=== PATIENT | male | born 1940 | race Caucasian/White ===

== ENCOUNTER 2017-06-20 15:37 | Emergency (ER) | payer MEDICARE ==
[~2017-06-20] VITALS: Ht 152.4 cm; Wt 100.0 kg
[~2017-06-20 15:37] MED LIST: ACYCLOVIR400 MG PO; ADLT ASA LOW81 MG PO; ALPRAZOLAM0.25 MG PO; AMBIEN10 MG PO; ASPIRIN ADULT L81 MG; AUGMENTIN500TAB PO; B-121000 MC1 PO; BACTRIM DS1 TAB PO; BENAZEPRIL10 M1 PO; CILOSTAZOL100 MG PO; CLOTRIM/BETA EX; FENOFIBRATE48 MG PO; FERR SULFATE325 MG PO; FERROUS SULF325 M2 PO; FLEXERIL PO; FLUARIX QUADRIV1 INJ IM; GLIPIZIDE10 MG PO; GLIPIZIDE5 M2 PO; K-DUR/KLOR-CON10 MEQ PO; LANTUS100 MG/ML SC; LASIX 20 MG TAB20 MG PO; LASIX20 MG PO; LISINOPRIL10 MG PO; LISINOPRIL20 M1 PO; LISINOPRIL20 MG PO; LORTAB 7.5 PO; LORTAB 7.57.5 MG PO; METFORMIN1000 MG PO; NEXIUM20 M1 PO; NOVOLIN 70/30 RELION SC; OMEPRAZOLE20.6 MGDR PO; ONDANSETRON4 MG PO; PERCOCET1 TA2 PO; PLETAL100 MG OR; PLETAL100 MG PO; POT CHLORIDE10 ME1 PO; PRAVASTATIN SOD20 MG PO; PRAVASTATIN20 MG PO; RELION SC; TEMAZEPAM15 MG PO; TEMAZEPAM30 MG PO; TRUETEST STRIPS XX; VITAMIN B-12500 MCG PO; ZOLPIDEM10 MG PO; ZPAK PO; [UNRECOGNIZED DRUG - OTHER] SC
[2017-06-20] MEDS ORDERED: NORCO1 TA1 PO (17:12)
[2017-06-20 17:21] VITALS: BP 144/56
== END 2017-06-20 17:34 | disposition home or self-care (01) ==
LOC: ED 15:37
DX: S82.842A Displaced bimalleolar fracture of left lower leg, initial encounter for closed fracture (principal); I25.10 Atherosclerotic heart disease of native coronary artery without angina pectoris; E11.9 Type 2 diabetes mellitus without complications; E78.5 Hyperlipidemia, unspecified; I50.9 Heart failure, unspecified; I11.0 Hypertensive heart disease with heart failure; M19.90 Unspecified osteoarthritis, unspecified site; Z95.820 Peripheral vascular angioplasty status with implants and grafts; W01.0XXA Fall on same level from slipping, tripping and stumbling without subsequent striking against object, initial encounter; Y93.89 Activity, other specified; Y92.009 Unspecified place in unspecified non-institutional (private) residence as the place of occurrence of the external cause

== ENCOUNTER 2017-07-01 15:22 | Inpatient (IN) | payer MEDICARE ==
[~2017-07-01] VITALS: Ht 177.8 cm; Wt 101.9 kg
[~2017-07-01 15:22] MED LIST changes: +NORCO1 TA1 PO
[2017-07-01 15:54] VITALS: BP 105/48
[2017-07-01 16:22] LABS: HEMATOCRIT 32.3 % (39.0-50.0); HEMOGLOBIN 10.4 g/dl (14.0-18.0); IMMATURE GRANULOCYTES 0.5 % (0.0-1.0); MEAN CELL VOLUME 94.7 fL CALC (80.0-100.0); MEAN CORPUSCULAR HGB 30.5 pG CALC (26.0-32.0); MEAN CORPUSCULAR HGB CONC 32.2 g/L CALC (32.0-36.0); NEUT# 6.51 thou/uL (1.82-7.42); RED BLOOD COUNT 3.41 mill/uL (4.70-6.10); RED CELL DISTRI WIDTH 14.2 % (11.5-15.5)
[2017-07-01 16:25] LABS: ALBUMIN 3.6 g/dL (3.2-5.0)
[2017-07-01 17:49] LABS: URINE BILIRUBIN - DIPSTICK NEGATIVE (NEGATIVE); URINE BLOOD DIPSTICK LARGE (NEGATIVE); URINE COLOR YELLOW; URINE GLUCOSE - DIPSTICK NEGATIVE (NEGATIVE); URINE KETONE NEGATIVE (NEGATIVE); URINE LEUK ESTERASE NEGATIVE (NEGATIVE); URINE NITRITE - DIPSTICK NEGATIVE (Negative); URINE PROTEIN - DIPSTICK NEGATIVE (NEG-TRACE); URINE UROBILINOGEN - DIPSTICK 0.2 E.U./dL (0.2)
[2017-07-01 17:52] LABS: URINE CLARITY HAZY
[2017-07-01 17:59] LABS: URINE AMORPH SEDIMENT FEW hpf (NONE-FER); URINE RBC 0-2 RBC/hpf (0-5); URINE WBC 0-2 WBC/hpf (0-5)
[2017-07-01 18:11] LABS: BILIRUBIN, TOTAL 0.8 mg/dL (0.0-1.4); CALCIUM 9.2 mg/dL (8.4-10.2); CREATININE 3.3 mg/dL (0.7-1.3); POTASSIUM 5.7 mmol/l (3.5-5.1); TOTAL PROTEIN 6.2 g/dL (6.3-8.2)
[2017-07-01 19:20] VITALS: BP 113/55
[2017-07-01 22:45] VITALS: BP 104/59
[2017-07-02 03:29] VITALS: BP 120/58
[2017-07-02 05:52] LABS: HEMATOCRIT 32.9 % (39.0-50.0); HEMOGLOBIN 10.7 g/dl (14.0-18.0); IMMATURE GRANULOCYTES 0.4 % (0.0-1.0); MEAN CELL VOLUME 93.5 fL CALC (80.0-100.0); MEAN CORPUSCULAR HGB 30.4 pG CALC (26.0-32.0); MEAN CORPUSCULAR HGB CONC 32.5 g/L CALC (32.0-36.0); NEUT# 6.61 thou/uL (1.82-7.42); RED BLOOD COUNT 3.52 mill/uL (4.70-6.10); RED CELL DISTRI WIDTH 13.9 % (11.5-15.5)
[2017-07-02 06:06] LABS: ALBUMIN 3.4 g/dL (3.2-5.0); BILIRUBIN, TOTAL 0.7 mg/dL (0.0-1.4); CALCIUM 9.1 mg/dL (8.4-10.2); CREATININE 2.4 mg/dL (0.7-1.3); TOTAL PROTEIN 5.9 g/dL (6.3-8.2)
[2017-07-02 06:11] LABS: POTASSIUM 5.9 mmol/l (3.5-5.1)
[2017-07-02 08:10] VITALS: BP 107/48
[2017-07-02 11:00] VITALS: BP 153/54
[2017-07-02 15:41] VITALS: BP 136/48
[2017-07-02 19:20] VITALS: BP 120/59
[2017-07-03 00:10] VITALS: BP 135/65
[2017-07-03 04:20] VITALS: BP 132/67
[2017-07-03 08:15] VITALS: BP 123/47
[2017-07-03 08:24] LABS: CHOLESTEROL HDL RATIO 3.2 (<4.4 (CALC))
[2017-07-03 11:30] VITALS: BP 146/50
[2017-07-03 15:22] VITALS: BP 101/50
[2017-07-03 19:17] VITALS: BP 144/55
[2017-07-04 00:35] VITALS: BP 150/57
[2017-07-04 05:22] VITALS: BP 142/61
[2017-07-04 07:01] LABS: HEMATOCRIT 33.6 % (39.0-50.0); HEMOGLOBIN 10.9 g/dl (14.0-18.0); IMMATURE GRANULOCYTES 0.3 % (0.0-1.0); MEAN CELL VOLUME 93.3 fL CALC (80.0-100.0); MEAN CORPUSCULAR HGB 30.3 pG CALC (26.0-32.0); MEAN CORPUSCULAR HGB CONC 32.4 g/L CALC (32.0-36.0); NEUT# 5.43 thou/uL (1.82-7.42); RED BLOOD COUNT 3.6 mill/uL (4.70-6.10); RED CELL DISTRI WIDTH 13.6 % (11.5-15.5)
[2017-07-04 07:15] LABS: CALCIUM 9.5 mg/dL (8.4-10.2); CREATININE 1.6 mg/dL (0.7-1.3)
[2017-07-04 07:19] LABS: POTASSIUM 5.6 mmol/l (3.5-5.1)
[2017-07-04 07:30] VITALS: BP 131/55
[2017-07-04 12:00] VITALS: BP 136/52
[2017-07-04 16:31] VITALS: BP 123/63
[2017-07-04 19:00] VITALS: BP 129/52
[2017-07-05] VITALS (7 sets, daily range): BP systolic 119–159; BP diastolic 57–70
[2017-07-05 05:45] LABS: HEMATOCRIT 32.2 % (39.0-50.0); HEMOGLOBIN 10.7 g/dl (14.0-18.0); IMMATURE GRANULOCYTES 0.4 % (0.0-1.0); MEAN CELL VOLUME 92.5 fL CALC (80.0-100.0); MEAN CORPUSCULAR HGB 30.7 pG CALC (26.0-32.0); MEAN CORPUSCULAR HGB CONC 33.2 g/L CALC (32.0-36.0); NEUT# 5.51 thou/uL (1.82-7.42); RED BLOOD COUNT 3.48 mill/uL (4.70-6.10); RED CELL DISTRI WIDTH 13.6 % (11.5-15.5)
[2017-07-05 06:06] LABS: ALBUMIN 3.4 g/dL (3.2-5.0); BILIRUBIN, TOTAL 0.7 mg/dL (0.0-1.4); CALCIUM 9.5 mg/dL (8.4-10.2); CREATININE 1.4 mg/dL (0.7-1.3); TOTAL PROTEIN 5.9 g/dL (6.3-8.2)
[2017-07-06 04:50] VITALS: BP 138/62
[2017-07-06 08:12] VITALS: BP 147/60
[2017-07-06 11:44] VITALS: BP 143/46
== END 2017-07-06 15:10 | DRG 863 ==
LOC: MS2 15:22
PROVIDERS: ADMIT Internal Medicine Geriatric Medicine; ATTEND Internal Medicine Geriatric Medicine
PROC: 0T9B70Z Drainage of Bladder with Drainage Device, Via Natural or Artificial Opening (ICD-10-PCS; principal; 2017-07-01)
DX: T81.4XXA Infection following a procedure, initial encounter (principal); E11.22 Type 2 diabetes mellitus with diabetic chronic kidney disease; I13.0 Hypertensive heart and chronic kidney disease with heart failure and stage 1 through stage 4 chronic kidney disease, or unspecified chronic kidney disease; I50.9 Heart failure, unspecified; E11.69 Type 2 diabetes mellitus with other specified complication; N18.9 Chronic kidney disease, unspecified; E78.5 Hyperlipidemia, unspecified; I25.10 Atherosclerotic heart disease of native coronary artery without angina pectoris; M19.90 Unspecified osteoarthritis, unspecified site; S82.892D Other fracture of left lower leg, subsequent encounter for closed fracture with routine healing; W19.XXXD Unspecified fall, subsequent encounter; Y83.1 Surgical operation with implant of artificial internal device as the cause of abnormal reaction of the patient, or of later complication, without mention of misadventure at the time of the procedure; Z95.1 Presence of aortocoronary bypass graft
CPT/HCPCS: J1335

== ENCOUNTER 2017-12-23 16:09 | Inpatient (IN) | payer MEDICARE ==
[~2017-12-23] VITALS: Ht 177.8 cm; Wt 98.0 kg
--- NOTE | 2017-12-23 16:30 | NUR ---
PT ARRIVED FROM DIRECT ADMIT WITH DR RED. FAMILY IN THE ROOM. WILL GET IV AND VS.
--- NOTE | 2017-12-23 17:00 | NUR ---
IV SITE IS OBTAINED AT 1745 IN RFA WITH # 20 1 ATTEMPT PT TOLERATED WELL. PT HAD CXR AND EKG COMPLETED. BREATH SOUNDS ARE CLEAR, BILATERALLY, HR IS REG, PULSES ARE STRONG X4. ABD IS SOFT WITH ACTIVE BS.DRESSING ON LEFT ANKLE IS CDI. FAMILY INQUIRED ABOUT IT BEING CHANGED. EXPLAINED THAT SOON WE GET AN ORDER FROM DR. RED WE WILL ADDRESS THE CHAMGE. CONTINUE TO OSBERVE AND MONITOR.
[2017-12-23 17:19] VITALS: BP 131/49
[2017-12-23 17:35] LABS: IMMATURE GRANULOCYTES 0.5 % (0.0-1.0); MEAN CELL VOLUME 93.2 fL CALC (80.0-100.0); MEAN CORPUSCULAR HGB 29.6 pG CALC (26.0-32.0); MEAN CORPUSCULAR HGB CONC 31.8 g/L CALC (32.0-36.0); NEUT# 5.88 thou/uL (1.82-7.42); RED BLOOD COUNT 4.39 mill/uL (4.70-6.10); RED CELL DISTRI WIDTH 15.2 % (11.5-15.5)
[2017-12-23 17:46] LABS: HEMATOCRIT 40.9 % (39.0-50.0)
[2017-12-23 18:00] LABS: CREATININE 2.4 mg/dL (0.7-1.3)
[2017-12-23 18:04] LABS: POTASSIUM 6.4 mmol/l (3.5-5.1)
--- NOTE | 2017-12-23 18:24 | NUR ---
SPOKE WITH DR TEOFILO BACA: DRESSING ON R FOOT CAN BE EXPOSED TOMORROW AND WILL GIVE DRESSING CHANGE ORDERS AT THAT TIME,. ALSO PICTURES CAN BE OBTAINED. ALL MEDICATIONS GIVEN AND PT ABLE TO TAKE
--- NOTE | 2017-12-23 19:30 | NUR ---
REPORT RECIEVED; PT RESTING IN BED WATCHING TV. PT DENIES ANY PAIN OR DISCOMFORT. PT ENCOURAGED TO CALL FOR ASSISTANCE. IV PATENT; NO REDNESS OR EDEMA NOTED.SAFETY PRECAUTIONS REINFORCED. CALL LIGHT WITHIN REACH. FREQUENT ROUNDS MADE.
[2017-12-23 19:34] VITALS: BP 139/63
--- NOTE | 2017-12-23 20:10 | NUR ---
PT WOKE FOR ASSESSMENT. RESP EVEN AND UNLABORED; NO DISCOMFORT NOTED. TELE IN PLACE. ABD DISTENDED; SOFT. HYPOACTIVE BOWEL SOUNDS NOTED. LEFT FOOT DRESSING INTACT; CDI. PEDAL PULSES PALPATED BILAT. IV RFA PATENT; NO REDNESS OR EDEMA NOTED. PT ENCOURAGED TO CALL FOR ASSISTANCE. SAFETY PRECAUTIONS REINFORCED.CALL LIGHT WITHIN REACH.
[2017-12-23 20:28] LABS: CREATININE 2.3 mg/dL (0.7-1.3)
[2017-12-23 20:35] LABS: POTASSIUM 6.9 mmol/l (3.5-5.1)
--- NOTE | 2017-12-23 20:38 | NUR ---
RECEIVED RESULTS FROM [employer], AND GAVE THE RESULT TO RADHA BURNETT
[2017-12-23] MEDS ORDERED: NOVOLIN 70/30 RELION SC (20:43)
[2017-12-23] MEDS ORDERED: NOVOLIN R100 UNIT/M SC (20:44)
[2017-12-23] MEDS ORDERED: LIPITOR40 M1 PO (20:46)
[2017-12-23] MEDS ORDERED: CARVEDILOL3.125 MG PO (20:47)
[2017-12-23] MEDS ORDERED: CLOPIDOGREL75 MG PO (20:48)
--- NOTE | 2017-12-23 20:48 | NUR ---
DR RED NOTIFIED OF PT POTASSIUM; 6.9. NEW ORDERS RECIEVED. 0.45 NORMAL SALINE @ 100. KAYEXALATE 30 CC PO X 1 NOW. MAGNESIUM CITRATE 5 OZ PO. CH7 LAB REDRAW IN 4 HRS. TORB.
[2017-12-23] MEDS ORDERED: LISINOPRIL5 MG PO (20:49)
[2017-12-23] MEDS ORDERED: OXYCODONE HCL5 MG PO (20:50)
[2017-12-23] MEDS ORDERED: DIFLUCAN100 M1 PO (20:51)
[2017-12-23] MEDS ORDERED: BACTRIM DS1 TAB PO (20:52)
[2017-12-23 23:00] LABS: URINE BILIRUBIN - DIPSTICK NEGATIVE (NEGATIVE); URINE BLOOD DIPSTICK NEGATIVE (NEGATIVE); URINE COLOR YELLOW; URINE GLUCOSE - DIPSTICK NEGATIVE (NEGATIVE); URINE KETONE NEGATIVE (NEGATIVE); URINE LEUK ESTERASE NEGATIVE (NEGATIVE); URINE NITRITE - DIPSTICK NEGATIVE (Negative); URINE PROTEIN - DIPSTICK NEGATIVE (NEG-TRACE); URINE SPECIFIC GRAVITY 1.015
[2017-12-23 23:02] LABS: URINE CLARITY CLEAR
--- NOTE | 2017-12-23 23:45 | NUR ---
PT HAD ONE SMALL BM, PT STATES IT WASNT A LARGE AMOUNT. PT DENIES PAIN OR DISCOMFORT. CALL LIGHT WITHIN REACH.
--- NOTE | 2017-12-24 00:20 | NUR ---
RESP EVEN AND UNLABORED; NO DISCOMFORT NOTED. TELE IN PLACE. IV PATENT; NO REDNESS OR EDEMA NOTED. CALL LIGHT WITHIN REACH.
[2017-12-24 00:21] VITALS: BP 147/68
[2017-12-24 01:15] LABS: CREATININE 1.9 mg/dL (0.7-1.3)
[2017-12-24 01:16] LABS: POTASSIUM 5.9 mmol/l (3.5-5.1)
--- NOTE | 2017-12-24 04:00 | NUR ---
RESP EVEN AND UNLABORED. IV PATENT; NO REDNESS OR EDEMA NOTED. TELE IN PLACE. CALL LIGHT WITHIN REACH.
[2017-12-24 04:09] VITALS: BP 125/55
[2017-12-24 05:38] LABS: ALBUMIN 3.7 g/dL (3.2-5.0); BILIRUBIN, TOTAL 0.5 mg/dL (0.0-1.4); CREATININE 1.8 mg/dL (0.7-1.3); TOTAL PROTEIN 6.3 g/dL (6.3-8.2)
[2017-12-24 05:40] LABS: HEMATOCRIT 36.8 % (39.0-50.0); IMMATURE GRANULOCYTES 0.3 % (0.0-1.0); MEAN CELL VOLUME 91.5 fL CALC (80.0-100.0); MEAN CORPUSCULAR HGB 29.9 pG CALC (26.0-32.0); MEAN CORPUSCULAR HGB CONC 32.6 g/L CALC (32.0-36.0); NEUT# 5.47 thou/uL (1.82-7.42); RED BLOOD COUNT 4.02 mill/uL (4.70-6.10); RED CELL DISTRI WIDTH 14.9 % (11.5-15.5)
[2017-12-24 05:47] LABS: POTASSIUM 6.3 mmol/l (3.5-5.1)
--- NOTE | 2017-12-24 05:57 | NUR ---
DR RED CALLED WITH POTASSIUM; 6.3. NEW ORDERS RECIEVED AT THIS TIME. KAYEXALATE 30 CC PO X1 NOW. MAGNESIUM CITRATE 10 OZ PO. HOLD NOVOLIN 70/30 FOR BLOOD SUGAR BELOW 130.
--- NOTE | 2017-12-24 07:30 | NUR ---
BEDSIDE REPORT RECEIVED FROM LEX GARCIA. PT SITTING ON SIDE OF BED. ASSISTED TO OWN WC. PT TRANSFERES SELF TO RESTROOM. REPORTS MULTIPLE LOOSE STOOLS DURING NIGHT. FALL PRECAUTIONS REINFORCED. PLAN OF CARE DISCUSSED. REPORTING OF CONCERNS ENCOURAGED. PT DENIES PAIN.
--- NOTE | 2017-12-24 09:00 | NUR ---
DR. RED IN TO SEE PT. WOUND TO L FOOT EXAMINED BY DR. RED. PIC TAKEN FOR CHART, WTD DRESSING APPLIED PER DR. RED.
[2017-12-24 11:10] VITALS: BP 156/64
[2017-12-24 13:24] LABS: HEMATOCRIT 38.1 % (39.0-50.0); HEMOGLOBIN 12.3 g/dl (14.0-18.0); IMMATURE GRANULOCYTES 0.3 % (0.0-1.0); MEAN CELL VOLUME 90.9 fL CALC (80.0-100.0); MEAN CORPUSCULAR HGB 29.4 pG CALC (26.0-32.0); MEAN CORPUSCULAR HGB CONC 32.3 g/L CALC (32.0-36.0); NEUT# 5.46 thou/uL (1.82-7.42); RED BLOOD COUNT 4.19 mill/uL (4.70-6.10); RED CELL DISTRI WIDTH 14.8 % (11.5-15.5)
[2017-12-24 13:37] LABS: CREATININE 1.5 mg/dL (0.7-1.3)
[2017-12-24 13:50] LABS: POTASSIUM 6.5 mmol/l (3.5-5.1)
--- NOTE | 2017-12-24 13:55 | NUR ---
CRITICAL RESULT OF POTASSIUM 6.[address] RED. ORDERS GIVEN AND FAXED TO PHARMACY. PT UPDATED AND STATES UNDERSTANDING.
[2017-12-24 14:33] LABS: ALBUMIN 3.8 g/dL (3.2-5.0); BILIRUBIN, TOTAL 0.6 mg/dL (0.0-1.4); TOTAL PROTEIN 6.5 g/dL (6.3-8.2)
[2017-12-24 15:42] VITALS: BP 104/50
--- NOTE | 2017-12-24 16:38 | NUR ---
PT SITTING ON SIDE OF BED. DENIES COMPLAINTS AT THIS TIME.
[2017-12-24 18:24] LABS: ALBUMIN 3.9 g/dL (3.2-5.0); BILIRUBIN, TOTAL 0.7 mg/dL (0.0-1.4); CREATININE 1.5 mg/dL (0.7-1.3); TOTAL PROTEIN 6.6 g/dL (6.3-8.2)
[2017-12-24 18:30] LABS: POTASSIUM 6.2 mmol/l (3.5-5.1)
[2017-12-24 19:00] VITALS: BP 128/41
--- NOTE | 2017-12-24 19:30 | NUR ---
PT RESTING IN BED WITH EYES CLOSED. AROUSES EASILY TO VERBAL STIMULI. PT IS ALERT AND ORIENTED X3. PERRLA. RESP ARE EVEN AND UNLABORED. NO DISTRESS NOTED, LUNGS ARE CLEAR. HR REGULAR. PULSES PALPABLE THROUGHOUT. NO EDEMA NOTED. BS ACTIVE. PT HAVING FREQUENT BMS ON KAYEXELATE. #20 1/2 NS @100CC/HR. NO REDNESS OR EDEMA NOTED. CALL LIGHT IN REACH. WILL CONTINUE TO MONITOR
[2017-12-24 21:32] LABS: ALBUMIN 3.7 g/dL (3.2-5.0); BILIRUBIN, TOTAL 0.5 mg/dL (0.0-1.4); CREATININE 1.5 mg/dL (0.7-1.3); POTASSIUM 5.6 mmol/l (3.5-5.1); TOTAL PROTEIN 6.5 g/dL (6.3-8.2)
--- NOTE | 2017-12-24 21:40 | NUR ---
DR RED NOTIFEID OF POTASSIUM 5.6.
--- NOTE | 2017-12-25 | NUR ---
PT RESTING IN BED WITH EYES CLOSED. RESP ARE EVEN AND UNLABORED. NO DISTRESS NOTED. WILL CONTINUE TO MONITOR
[2017-12-25 00:21] VITALS: BP 116/56
--- NOTE | 2017-12-25 04:05 | NUR ---
PT RESTING IN BED WITH EYES CLOSED. RES ARE EVEN AND UNLABORED. NO DISTRESS NOTED, WILL CONTIUE TO MONITOR
[2017-12-25 04:31] VITALS: BP 127/52
[2017-12-25 06:42] LABS: HEMATOCRIT 39.1 % (39.0-50.0); HEMOGLOBIN 12.5 g/dl (14.0-18.0); MEAN CELL VOLUME 90.7 fL CALC (80.0-100.0); RED BLOOD COUNT 4.31 mill/uL (4.70-6.10); RED CELL DISTRI WIDTH 14.7 % (11.5-15.5)
--- NOTE | 2017-12-25 06:49 | NUR ---
REPORT RECEIVED FROM MATTHEW ALBERTS. PT SLEEPING AT THIS TIME. CALL LIGHT WITHIN REACH.
[2017-12-25 06:51] LABS: ALBUMIN 3.8 g/dL (3.2-5.0); BILIRUBIN, TOTAL 0.6 mg/dL (0.0-1.4); CREATININE 1.4 mg/dL (0.7-1.3); POTASSIUM 5.4 mmol/l (3.5-5.1); TOTAL PROTEIN 6.7 g/dL (6.3-8.2)
[2017-12-25 07:58] VITALS: BP 132/60
[2017-12-25 08:21] VITALS: BP 132/60
--- NOTE | 2017-12-25 08:29 | NUR ---
PT SITTING ON SIDE OF BED. DENIES PAIN. REPORTING OF CONCERNS ENCOURAGED. PT STATES ANTICIPATION FO DISCHARGE. DISCHARGE PROCESS REVIEWED. PT STATES UNDERSTANDING.
--- NOTE | 2017-12-25 09:34 | NUR ---
DR. RED IN TO SEE PT. PLAN OF CARE UPDATED.
--- NOTE | 2017-12-25 10:30 | NUR ---
Discharge instructions given. Patient verbalizes understanding of same. Discharged in stable condition via Wheelchair to Home with family. All belongings sent with pt.
== END 2017-12-25 10:30 | disposition home or self-care (01) | DRG 641 ==
LOC: MS2 16:09
PROVIDERS: ADMIT Internal Medicine Geriatric Medicine; ATTEND Internal Medicine Geriatric Medicine
DX: E87.5 Hyperkalemia (principal); N17.9 Acute kidney failure, unspecified; E11.22 Type 2 diabetes mellitus with diabetic chronic kidney disease; E11.69 Type 2 diabetes mellitus with other specified complication; I13.0 Hypertensive heart and chronic kidney disease with heart failure and stage 1 through stage 4 chronic kidney disease, or unspecified chronic kidney disease; I50.9 Heart failure, unspecified; N18.9 Chronic kidney disease, unspecified; I25.10 Atherosclerotic heart disease of native coronary artery without angina pectoris; E78.5 Hyperlipidemia, unspecified; T81.4XXD Infection following a procedure, subsequent encounter; Y83.1 Surgical operation with implant of artificial internal device as the cause of abnormal reaction of the patient, or of later complication, without mention of misadventure at the time of the procedure; Z95.1 Presence of aortocoronary bypass graft

== ENCOUNTER 2018-01-08 18:14 | Emergency (ER) | payer MEDICARE ==
[~2018-01-08] VITALS: Ht 177.8 cm; Wt 98.2 kg
[~2018-01-08 18:14] MED LIST changes: +CARVEDILOL3.125 MG PO; +CLOPIDOGREL75 MG PO; +DIFLUCAN100 M1 PO; +LIPITOR40 M1 PO; +LISINOPRIL5 MG PO; +NOVOLIN R100 UNIT/M SC; +OXYCODONE HCL5 MG PO
[2018-01-08 19:23] VITALS: BP 172/66
== END 2018-01-08 19:38 | disposition home or self-care (01) ==
LOC: ED 18:14
PROC: 0HQLXZZ Repair Left Lower Leg Skin, External Approach (ICD-10-PCS; principal; 2018-01-08)
DX: S81.012A Laceration without foreign body, left knee, initial encounter (principal); W22.8XXA Striking against or struck by other objects, initial encounter; Y92.009 Unspecified place in unspecified non-institutional (private) residence as the place of occurrence of the external cause

== ENCOUNTER 2018-03-31 08:15 | Inpatient (IN) | payer MEDICARE ==
[~2018-03-31] VITALS: Ht 177.8 cm; Wt 100.4 kg
[~2018-03-31 08:15] MED LIST changes: +OMEPRAZOLE10 MG PO; -OMEPRAZOLE20.6 MGDR PO
[2018-03-31] MEDS ORDERED: NOVOLIN 70/30 SC ×2 (08:40)
[2018-03-31] MEDS ORDERED: LISINOPRIL10 MG PO (08:43)
[2018-03-31] MEDS ORDERED: FUROSEMIDE20 MG PO (08:46)
[2018-03-31] MEDS ORDERED: OXYCOD-APAP1 TA1 PO (08:48)
[2018-03-31 08:55] LABS: HEMATOCRIT 39.9 % (39.0-50.0); HEMOGLOBIN 12.9 g/dl (14.0-18.0); IMMATURE GRANULOCYTES 0.4 % (0.0-1.0); MEAN CELL VOLUME 94.5 fL CALC (80.0-100.0); MEAN CORPUSCULAR HGB 30.6 pG CALC (26.0-32.0); MEAN CORPUSCULAR HGB CONC 32.3 g/L CALC (32.0-36.0); NEUT# 7.84 thou/uL (1.82-7.42); RED BLOOD COUNT 4.22 mill/uL (4.70-6.10); RED CELL DISTRI WIDTH 14.4 % (11.5-15.5)
[2018-03-31 09:07] LABS: ALBUMIN 4.2 g/dL (3.2-5.0); ALKALINE PHOSPHATASE 95 u/l (38-126); BILIRUBIN, TOTAL 1.2 mg/dL (0.0-1.4); BUN 31 mg/dL (8-23); BUN/CREATININE RATIO 26 (12-20 (CALC)); CARBON DIOXIDE 23 mmol/l (22-30); CHLORIDE 108 mmol/l (95-108); CREATININE 1.2 mg/dL (0.7-1.3); GFR 59 ML/MIN (>=60 (CALC)); GFR FOR AFR.AMER. > 60 ML/MIN (>=60 (CALC)); SGPT/ALT 28 u/l (11-66); SODIUM 143 mmol/l (137-146); TOTAL PROTEIN 7.6 g/dL (6.3-8.2)
[2018-03-31 09:14] LABS: ANION GAP 17 (6-22 (CALC)); POTASSIUM 5.4 mmol/l (3.5-5.1); SGOT/AST 39 u/l (19-48)
[2018-03-31 09:16] LABS: MYOGLOBIN 51 ng/mL (0 - 121)
[2018-03-31 09:24] LABS: URINE BILIRUBIN - DIPSTICK NEGATIVE (NEGATIVE); URINE BLOOD DIPSTICK NEGATIVE (NEGATIVE); URINE COLOR YELLOW; URINE GLUCOSE - DIPSTICK NEGATIVE (NEGATIVE); URINE KETONE NEGATIVE (NEGATIVE); URINE LEUK ESTERASE NEGATIVE (NEGATIVE); URINE NITRITE - DIPSTICK NEGATIVE (Negative); URINE PROTEIN - DIPSTICK NEGATIVE (NEG-TRACE); URINE UROBILINOGEN - DIPSTICK 0.2 E.U./dL (0.2)
[2018-03-31 09:25] LABS: URINE CLARITY CLEAR
[2018-03-31 11:41] VITALS: BP 133/59
[2018-03-31 15:01] VITALS: BP 175/68
[2018-03-31 17:55] VITALS: BP 148/64
[2018-03-31 19:00] VITALS: BP 137/61
[2018-04-01 00:03] VITALS: BP 126/58
[2018-04-01 04:06] VITALS: BP 133/59
[2018-04-01 06:51] LABS: HEMATOCRIT 39.5 % (39.0-50.0); HEMOGLOBIN 13.2 g/dl (14.0-18.0); IMMATURE GRANULOCYTES 0.4 % (0.0-1.0); MEAN CELL VOLUME 92.3 fL CALC (80.0-100.0); MEAN CORPUSCULAR HGB 30.8 pG CALC (26.0-32.0); MEAN CORPUSCULAR HGB CONC 33.4 g/L CALC (32.0-36.0); NEUT# 6.26 thou/uL (1.82-7.42); RED BLOOD COUNT 4.28 mill/uL (4.70-6.10)
[2018-04-01 07:03] LABS: ALKALINE PHOSPHATASE 103 u/l (38-126); ANION GAP 15 (6-22 (CALC)); BILIRUBIN, TOTAL 1.2 mg/dL (0.0-1.4); BUN 32 mg/dL (8-23); BUN/CREATININE RATIO 26 (12-20 (CALC)); CALCULATED LDLCHOLESTEROL 51 mg/dL (62-129 (CALC)); CARBON DIOXIDE 28 mmol/l (22-30); CHLORIDE 102 mmol/l (95-108); CHOLESTEROL HDL RATIO 3.1 (<4.4 (CALC)); CREATININE 1.2 mg/dL (0.7-1.3); GFR 59 ML/MIN (>=60 (CALC)); GFR FOR AFR.AMER. > 60 ML/MIN (>=60 (CALC)); HDL CHOLESTEROL 38 mg/dL (>=40); POTASSIUM 4.4 mmol/l (3.5-5.1); SGOT/AST 15 u/l (19-48); SGPT/ALT 28 u/l (11-66); SODIUM 141 mmol/l (137-146); TOTAL CHOLESTEROL 119 mg/dl (0-199); TOTAL PROTEIN 6.9 g/dL (6.3-8.2); TOTAL TRIGLYCERIDES 149 mg/dl (30-149); VLDL CHOLESTROL 30 mg/dl (0-38 (CALC))
[2018-04-01 08:36] VITALS: BP 145/53
[2018-04-01 12:32] VITALS: BP 115/43
[2018-04-01 15:42] VITALS: BP 117/62
== END 2018-04-01 17:47 | disposition home or self-care (01) | DRG 292 ==
LOC: ED 08:15 → ED-I 10:20 → ED 10:30 → MS2 10:31
PROVIDERS: Emergency Medicine; ADMIT Internal Medicine Geriatric Medicine; ATTEND Internal Medicine Geriatric Medicine
DX: I13.0 Hypertensive heart and chronic kidney disease with heart failure and stage 1 through stage 4 chronic kidney disease, or unspecified chronic kidney disease (principal); N17.9 Acute kidney failure, unspecified; F11.20 Opioid dependence, uncomplicated; I50.9 Heart failure, unspecified; E11.22 Type 2 diabetes mellitus with diabetic chronic kidney disease; N18.9 Chronic kidney disease, unspecified; I25.10 Atherosclerotic heart disease of native coronary artery without angina pectoris; E78.5 Hyperlipidemia, unspecified; K21.9 Gastro-esophageal reflux disease without esophagitis; E87.5 Hyperkalemia; I73.9 Peripheral vascular disease, unspecified; G89.29 Other chronic pain; M54.5 Low back pain; M19.90 Unspecified osteoarthritis, unspecified site; Z95.1 Presence of aortocoronary bypass graft; Z95.2 Presence of prosthetic heart valve; Z95.5 Presence of coronary angioplasty implant and graft; Z79.4 Long term (current) use of insulin

== ENCOUNTER 2018-11-22 09:58 | Inpatient (IN) | payer MEDICARE ==
[~2018-11-22] VITALS: Ht 274.3 cm; Wt 104.9 kg
[~2018-11-22 09:58] MED LIST changes: +FUROSEMIDE20 MG PO; +NOVOLIN 70/30 SC; +OXYCOD-APAP1 TA1 PO
--- NOTE | 2018-11-22 10:16 | NUR ---
[facility]
[2018-11-22 11:17] LABS: HEMATOCRIT 37.2 % (39.0-50.0); HEMOGLOBIN 11.9 g/dl (14.0-18.0); IMMATURE GRANULOCYTES 0.4 % (0.0-5.0); MEAN CELL VOLUME 93.9 fL CALC (80.0-100.0); MEAN CORPUSCULAR HGB 30.1 pG CALC (26.0-32.0); NEUT# 11.48 thou/uL (1.82-7.42); RED BLOOD COUNT 3.96 mill/uL (4.70-6.10); RED CELL DISTRI WIDTH 14.4 % (11.5-15.5)
[2018-11-22 11:38] LABS: ALBUMIN 3.8 g/dL (3.2-5.0); BILIRUBIN, TOTAL 2.2 mg/dL (0.0-1.4); CREATININE 1.9 mg/dL (0.7-1.3); TOTAL PROTEIN 6.5 g/dL (6.3-8.2)
[2018-11-22 11:47] LABS: POTASSIUM 5.6 mmol/l (3.5-5.1)
--- NOTE | 2018-11-22 12:04 | NUR ---
PT ADVISED OF CONTINUED WAIT TIME. ASSISTED W/REPOSITIONING. IV SITE HEALTHY. IV ABT AND FLUIDS INFUSING. CALL LIGHT WITHIN REACH.
--- NOTE | 2018-11-22 12:40 | NUR ---
PT PLACED ON O2 2L/M VIA NC DUE TO SATS AT 89 RA WHILE ASLEEP.
--- NOTE | 2018-11-22 13:15 | NUR ---
ADVISED REPORT COULD NOT BE TAKEN AT THIS TIME ON [employer].
--- NOTE | 2018-11-22 14:39 | NUR ---
ATTEMPT TO CALL REPORT. NURSE UNAVAILABLE.
--- NOTE | 2018-11-22 15:01 | NUR ---
REPORT CALLED TO FRED PT TO [facility] ON TELEMETRY. IV SITE HEALTHY, VSS
--- NOTE | 2018-11-22 15:09 | NUR ---
PT ARRIVED TO FLOOR VIA STRETCHER IN STABLE CONDITION ACCOMPANIED BY MATTHEW WHITEHEAD;PT AMBULATED WITH A WEAK GAIT AND ASSISTED DEVICE TO BEDSIDE;WT AND VS OBTAINED BY WRITTER,CURRENT TEMP 100.0;BLANKETS REMOVED,AC LOWERED AND PRN TYLENOL 650MG PO TO BE ADMINISTERED;PT REPORTS "COLD" SINCE 11/19/18;PT DENIES ANY CURRENT PAIN,PAIN SCALE AND REPORTING EDUCATED;ASSESSMENT COMPLETED;RESPIRATIONS EVEN AND UNLABORED ON HUM O2 @ 2L VIA NC, EXERTIONAL SOB NOTED AT TIMES;PT REPORTS PRODUCTIVE COUGH BROWN/SMALL AND THICK, NO SPUTUM VISUALIZED BY WRITTER AT THIS TIME;LUNG SOUNDS CLEAR/DIMINISHED;ABDOMEN DISTENDED/SOFT ON PALPATION AND ACTIVE IN ALL 4 QUADRANTS, LAST BM 11/19/18 PT REPORTS THIS IS NORMAL FOR HIM;WEAK PEDAL PULSES;SKIN INTACT;#20G TO RAC FLUSHED AND PATENT, NS TO BE STARTED AT 80ML/HR PER ORDER;TELE MONITORING IN PLACE;PT DENIES ANY ADDITIONAL NEEDS AT THIS TIME;FRESH WATER PROVIDED;ENCOURAGED TO CALL FOR ASSISTANCE IF NEEDED;FALL PRECAUTIONS IN PLACE WITH CALL LIGHT IN REACH;WILL CONTINUE TO MONITOR
[2018-11-22 15:19] VITALS: BP 149/76
--- NOTE | 2018-11-22 16:55 | NUR ---
TEMP RE-CHECK 99.5.
--- NOTE | 2018-11-22 17:30 | NUR ---
AT BEDSIDE DISCUSSING POC.
[2018-11-22 19:29] VITALS: BP 119/55
--- NOTE | 2018-11-22 19:30 | NUR ---
PATIENT SITTING UP ON THE SIDE OF THE BED-AWAKE ALERT AND ORIENTEDX3. TELE MONITOR IN PLACE. IV SITE TO RIGHT AC INTACT WITH IVF PATENT AND INFUSING AT 80CC/HR. SITE IS HEALTHY AT THIS TIME. PATIENT USING THE O2 ON AND OFF. PRODUCTIVE COUGH AT TIMES WITH THICK DARK YELLOW/BEIGE SPUTUM. SAFETY PRECAUTIONS REINFORCED. CALL LIGHT IN REACH. WILL CONT TO MONITOR.
--- NOTE | 2018-11-22 21:00 | NUR ---
PATIENT RESTING IN BED. STATES NO APPETITE AND DIDN'T EAT HIS DINNER. BS-199. DECLINES 70/30 TONIGHT DUE TO LACK OF ORAL INTAKE AND POOR APPETTIE. COVERED WITH NOVALOG ONLY PER PATIENT REQUEST. MEDICATED WITH MOM 30CC FOR CONSTIPATION. NO BM IN SEVERAL DAYS PER PATIENT. REINFORCED. STRICT I&O-VERBALIZES UNDERSTANDING. SAFETY PRECAUTIONS REINFORCED. CALL LIGHT IN REACH. WILL CONT TO MONITOR.
--- NOTE | 2018-11-22 22:52 | NUR ---
PATIENT RESTING IN BED-MEDICATED FOR GENERALIZED BACK AND LEG PAIN WITH PERCOCET 10/325MG PO AND FOR SLEEP WITH RESTORIL 30MG PO. CONT TO HAVE PRODUCTIVE COUGH. SAFETY PRECAUTIONS REINFORCED. CALL LIGHT IN REACH. WILL CONT TO MONITOR.
[2018-11-23 00:31] VITALS: BP 98/52
--- NOTE | 2018-11-23 03:04 | NUR ---
PATIENT RESTING INBED-REPOSITIONING SELF IN BED. CONT WITH PRODUCTIVE COUGH. TELE MONITOR IN PLACE. NO COMPLAINTS AT THIS TIME. CALL LIGHT IN REACH. WILL CONT TO MONITOR.
[2018-11-23 04:20] VITALS: BP 122/61
[2018-11-23 05:36] LABS: HEMOGLOBIN 11.5 g/dl (14.0-18.0); IMMATURE GRANULOCYTES 1.3 % (0.0-5.0); MEAN CELL VOLUME 95.5 fL CALC (80.0-100.0); MEAN CORPUSCULAR HGB 30.5 pG CALC (26.0-32.0); MEAN CORPUSCULAR HGB CONC 31.9 g/L CALC (32.0-36.0); NEUT# 7.47 thou/uL (1.82-7.42); RED BLOOD COUNT 3.77 mill/uL (4.70-6.10); RED CELL DISTRI WIDTH 14.4 % (11.5-15.5)
[2018-11-23 05:40] LABS: ALBUMIN 3.5 g/dL (3.2-5.0); BILIRUBIN, TOTAL 1.1 mg/dL (0.0-1.4); CREATININE 1.7 mg/dL (0.7-1.3); POTASSIUM 5.1 mmol/l (3.5-5.1); TOTAL PROTEIN 6.2 g/dL (6.3-8.2)
--- NOTE | 2018-11-23 07:00 | NUR ---
PT REPORT RECIEVED FROM MATTHEW CARRIZALES. PT WATCHING TELEVISION. NO S/S OF DISTRESS. CALL LIGHT IN REACH. WILL CONTINUE TO MONITOR.
[2018-11-23 07:51] VITALS: BP 128/66
--- NOTE | 2018-11-23 07:51 | NUR ---
PT A/O X3. SPEECH IS CLEAR. PRODUCTIVE COUGH NOTED; PT STATES IT IS THICK, YELLOWISH IN COLOR. RESP EVEN AND UNLABORED. UPPER LOBES CLEAR, LOWER LOBES COARSE. O2 @2L AT THE BEDSIDE. TELE IN PLACE. BOWEL SOUNDS ACTIVE X4. STRONG RADIAL PULSES, WEAK PEDAL PULSES. #20 RAC NS @80. SITE APPEARS HEALTHY. SKIN IS INTACT. NO C/O PAIN OR NEEDS. POC DISCUSSED. SAFETY PRECAUTIONS IN PLACE. CALL LIGHT IN REACH. WILL CONTINUE TO MONITOR.
--- NOTE | 2018-11-23 11:18 | NUR ---
PT LYINGIN BED RESTING. TELE IN PLACE. PT IS COUGHING UP A MODERATE AMOUNT OF THICK BROWN SPUTUM. NO C/O PAIN OR NEEDS. CALL LIGHT IN REACH. WILL CONTINUE TO MONITOR.
[2018-11-23 12:00] VITALS: BP 102/37
--- NOTE | 2018-11-23 14:12 | NUR ---
CPT given bilateral with G5 percussor x 6 minutes.
--- NOTE | 2018-11-23 15:54 | NUR ---
PT WATCHING TELEVISION IN BED. NO C/O PAIN OR NEEDS. TELE IN PLACE. CALL LIGHT IN REACH. WILL CONTINUE TO MONITOR.
[2018-11-23 16:00] VITALS: BP 130/59
[2018-11-23 19:19] VITALS: BP 143/65
--- NOTE | 2018-11-23 19:30 | NUR ---
PATIENT RESTING IN BED AT THIS TIME-APPEARS SLEEPING AT THIS TIME WITH EYES CLOSED. O2 IS OFF AT THIS TIME AND O2 SAT IS MID 90'S. TELE MONITOR IN PLACE. IVF NS PATENT AND INFUSING AT 50CC/HR. SITE APPEARS HEALTHY AT THIS TIME. CALL LIGHT IN REACH. WILL CONT TO MONITOR.
--- NOTE | 2018-11-23 20:30 | NUR ---
PATIENT RESTING IN BED-EASY TO AROUSE. PATIENT MEDICATED WITH HS MEDS INCLUDING PERCOCET FOR BACK AND LEG PAIN AND WITH RESTORIL FOR SLEEP. PATIENT ALSO RECIEVED MOM FOR CONSTIPATION. VOIDED CLEAR REN URINE IN URINAL. SAFETY PRECAUTIONS REINFORCED. CALL LIGHT IN REACH, WILL CONT TO MONITOR.
--- NOTE | 2018-11-23 21:16 | NUR ---
BS-123 AND PATIENT DIDN'T EAT HIS HS SNACK. NOVALIN 70/30 HELD AT THIS TIME. PATIENT APPEARS SLEEPING AT THIS TIME-POSITIONED ON HIS RIGHT SIDE. RESP ARE EVEN AND UNLABORED. CALL LIGHT IN REACH. WILL CONT TO MONITOR.
--- NOTE | 2018-11-23 23:42 | NUR ---
APPEARS RESTING IN BED AT THIS TIME WITH EYES CLOSED. TELE MONITOR IN PLACE. CALL LIGHT IN REACH. WILL CONT TO MONITOR.
[2018-11-24] VITALS (7 sets, daily range): BP systolic 100–166; BP diastolic 61–75
--- NOTE | 2018-11-24 04:30 | NUR ---
PATIENT RESTLESS ALL NIGHT-UP AND DOWN ALL NIGHT EVEN WITH SLEEPING AND PAIN MEDS. TELE MONITOR IN PLACE. IVF PATENT AND INFUSING AT 50CC/HR VIA RIGHT AC. CALL LIGHT IN REACH. WILL CONT TO MONITOR.
[2018-11-24 04:55] LABS: HEMATOCRIT 37.7 % (39.0-50.0); IMMATURE GRANULOCYTES 0.5 % (0.0-5.0); MEAN CELL VOLUME 94.7 fL CALC (80.0-100.0); MEAN CORPUSCULAR HGB 30.2 pG CALC (26.0-32.0); MEAN CORPUSCULAR HGB CONC 31.8 g/L CALC (32.0-36.0); NEUT# 7.73 thou/uL (1.82-7.42); RED BLOOD COUNT 3.98 mill/uL (4.70-6.10); RED CELL DISTRI WIDTH 14.1 % (11.5-15.5)
[2018-11-24 05:14] LABS: ALBUMIN 3.6 g/dL (3.2-5.0); BILIRUBIN, TOTAL 0.8 mg/dL (0.0-1.4); CREATININE 1.4 mg/dL (0.7-1.3); POTASSIUM 4.8 mmol/l (3.5-5.1); TOTAL PROTEIN 6.2 g/dL (6.3-8.2)
--- NOTE | 2018-11-24 07:00 | NUR ---
REPORT RECEIVED FROM MATTHEW CARRIZALES .PT IS SLEEPING IN BED WITH NO S/S OF DISTRESS NOTED. CALL LIGHT IN REACH.
--- NOTE | 2018-11-24 08:05 | NUR ---
PT IS SITTING IN THE SIDE OF THE BED. DR. FAY AT BEDSIDE TO ASSESS PT. ORDERS RECEIVED TO DC TELE. ASSESSMENT DONE. PT IS A&O X3. NS 50ML/HR INFUSING WELL. SAFETY PRECAUTIONS REINFORCED AND CALL LIGHT IN REACH.
--- NOTE | 2018-11-24 11:36 | NUR ---
PT IS SITTTING IN RECLINER WITH NO S/S OF DISTRESS NOTED. PT DENIES PAIN AT THIS TIME. PT DENIES ANY NEEDS AT THIS TIME.
--- NOTE | 2018-11-24 16:00 | NUR ---
PT IS SITTING IN THE RECLINER . PT DENIES ANY NEEDS AT THIS TIME. CALL LIGHT IN REACH.
--- NOTE | 2018-11-24 19:30 | NUR ---
PATIENT RESTING IN BED-APPEARS SLEEPING AT THIS TIME. RESP ARE EVEN AND UNLABORED. TELE MONITOR INPLACE. IV SITE TO RIGHT AC INTACT WITH IVF PATENT AND INFUSING AT 50CC/HR. SITE APPEARS HEALTHY AT THIS TIME. CALL LIGHT IN REACH. WILL CONT TO MONITOR.
--- NOTE | 2018-11-24 21:30 | NUR ---
[id number] WITH 70/30 AND NOVALOG PER SLIDING SCALE. HS SNACK PROVIDED. CONT TO HAVE PRODUCTIVE COUGH. PATIENT STATES THAT THE SPUTUM IS NOW LIGHT GREEN. PATIENT MEDICATED WITH ROBITUSSIN FOR COUGH. RESTORIL GIVEN FOR SLEEP. SAFETY PRECAUTIONS REINFORCED. CALL LIGHT IN REACH. WILL CONT TO MONITOR.
[2018-11-25] VITALS (7 sets, daily range): BP systolic 104–157; BP diastolic 49–97
--- NOTE | 2018-11-25 03:06 | NUR ---
PATIENT RESTING IN BED-APPEARS SLEEPING POSITIONED ON LEFT SIDE WITH EYES CLOSED. RESP ARE EVEN AND UNLABORED. CALL LIGHT IN REACH. WILL CONT TO MONITOR.
--- NOTE | 2018-11-25 04:52 | NUR ---
PATIENT CONT TO BE UP AND DOWN ALL NIGHT. STILL NOT SLEEPING WELL. NO COMPLAINTS AT THIS TIME. CALL LIGHT IN REACH. WILL CONT TO MONITOR.
[2018-11-25 05:44] LABS: HEMATOCRIT 34.6 % (39.0-50.0); HEMOGLOBIN 11.2 g/dl (14.0-18.0); IMMATURE GRANULOCYTES 0.8 % (0.0-5.0); MEAN CELL VOLUME 93.5 fL CALC (80.0-100.0); MEAN CORPUSCULAR HGB 30.3 pG CALC (26.0-32.0); MEAN CORPUSCULAR HGB CONC 32.4 g/L CALC (32.0-36.0); NEUT# 6.92 thou/uL (1.82-7.42); RED BLOOD COUNT 3.7 mill/uL (4.70-6.10); RED CELL DISTRI WIDTH 13.9 % (11.5-15.5)
[2018-11-25 06:11] LABS: ANION GAP 11 (6-22 (CALC)); BUN 25 mg/dL (8-23); BUN/CREATININE RATIO 22 (12-20 (CALC)); CALCULATED LDLCHOLESTEROL 43 mg/dL (62-129 (CALC)); CARBON DIOXIDE 26 mmol/l (22-30); CHLORIDE 106 mmol/l (95-108); CHOLESTEROL HDL RATIO 3.1 (<4.4 (CALC)); CREATININE 1.1 mg/dL (0.7-1.3); GFR > 60 ML/MIN (>=60 (CALC)); GFR FOR AFR.AMER. > 60 ML/MIN (>=60 (CALC)); HDL CHOLESTEROL 29 mg/dL (>=40); POTASSIUM 4.2 mmol/l (3.5-5.1); SODIUM 140 mmol/l (137-146); TOTAL CHOLESTEROL 91 mg/dl (0-199); TOTAL TRIGLYCERIDES 94 mg/dl (30-149); VLDL CHOLESTROL 19 mg/dl (0-38 (CALC))
--- NOTE | 2018-11-25 07:00 | NUR ---
PT REPORT RECIEVED FROM MATTHEW CARRIZALES. PT RESTING IN BED. NO S/S OF DISTRESS. CALL LIGHT IN REACH. WILL CONTINUE TO MONITOR.
--- NOTE | 2018-11-25 07:43 | NUR ---
PT A/O X3. SPEECH IS CLEAR. RESP EVEN AND UNLABORED. LUNG SOUNDS DIMINISHED. O2 @2L AT BEDSIDE. BOWEL SOUNDS ACTIVE X4. STRONG RADIAL, WEAK PEDAL PULSES. #20 LAC NS @50. SITE APPEARS HEALTHY. PT HAS TRACE OF EDEMA TO BILATERAL ANKLE. ENCOURAGED ELEVATION. SKIN IS INTACT. NO C/O PAIN OR NEEDS. POC DISCUSSED. SAFETY PRECAUTIONS IN PLACE. CALL LIGHT IN REACH. WILL CONTINUE TO MONITOR.
--- NOTE | 2018-11-25 10:10 | NUR ---
PT ASSISTED TO THE BATHROOM BY ONLINE PROJECT MANAGER AFTER INCONTINENCE OF STOOL. PT ASSISTED UP FROM TOILET AND AMBULATED TO SHOWER W/ ASSISTANCE OF ONLINE PROJECT MANAGER. UPON ENTERING SHOWER PT RT LEG SLIPPED AND PT FELL ON HIS BACK. NO HEAD INJURIES OCCURED, NO OPENING ON BODY VISIBLE. PT ASSISTED TO SITTING POSITION BY ONLINE PROJECT MANAGER AND POOL LUCIO. VS DONE. PT DENIES ANY PAIN AT THE MOMENT. PT ASSISTED W/ SHOWER BY POOL DORSEY, AFTER SHOWER TRANSPORTED BY TO BED W/ STANDBY HELP OF POOL DORSEY. SAFETY PRECAUTIONS IN PLACE. BED ALARM ON. WILL CONTINUE TO MONITOR.
--- NOTE | 2018-11-25 12:05 | NUR ---
PT WATCHING TELEVISION. NO C/O PAIN OR NEEDS. CALL LIGHT IN REACH. WILL CONTINUE TO MONITOR.
--- NOTE | 2018-11-25 15:53 | NUR ---
pt c/o back and leg pain. 5 out of 10 on pain scale. medicated w/ one 10 percocet po. repositioned for comfort. no further needs expressed. call light in reach. bed alarm on. will continue to monitor
--- NOTE | 2018-11-25 22:10 | NUR ---
PT MEDICATED ORDERS PROVIDE AND ASSESSED, LUNG SOUNDS DIM/CL, ABD DIST FIRM NON-TENDER W/ACTIVE BOWEL SOUNDS. PT REPORTS LOOSE STOOL EARLIER TODAY. ALSO REPORTS TENDERNESS IN RIGHT RIB CAGE/MEDICATED FOR PAIN, REPORTS ESPECIALLY SORE UPON COUGHING/MEDICATED FOR COUGH ORDERS PROVIDE. PT IS IN RECLINER FOR COMFORT, STATES HE DOES NOT WANT TO GET IN THE BED. I INSTRUCTED PT TO CALL IF HE DECIDES TO MOVE TO THE BED OR GET UP FOR SAFETY PRECAUTIONS. CALL LIGHT AT SIDE ON TABLE. PT RESPONDED W/UNDERSTANDING AND AGREEMENT OF SAFETY PRECAUTIONS. WILL CONTINUE TO MONITOR.
--- NOTE | 2018-11-26 01:10 | NUR ---
PT IS IN THE RECLINER SLEEPING, FEET SLIGHTLY ELEVATED ON PILLOW ON FLOOR FOR COMFORT, REFUSED EARLIER TO ELEVATE LEGS/ASKING FOR PILLOW POSITIONING FOR FEET. NO S/O DISTRESS NOTED. CALL LIGHT IS AT BEDSIDE, LIGHTS ARE OFF, TV ON LOW.
--- NOTE | 2018-11-26 03:10 | NUR ---
PT IS SLEEPING UPRIGHT IN RECLINER. NO SO DISTRESS AT THIS TIME. CALL LIGHT AT SIDE ON TABLE W/IN REACH
[2018-11-26 03:44] VITALS: BP 118/54
[2018-11-26 08:15] VITALS: BP 140/63
--- NOTE | 2018-11-26 08:15 | NUR ---
ASSESSMENT IS COMPLETED: IV SITE IS FREE FROM REDNESS OR EDEMA. HR IS REG,PULSES ARE STRONG X4, ABD IS SOFT WITH ACTIVE BS. BREATH SOUNDS ARE CLEAR AND DIMINISHED. TELE MONITOR IN PLACE.CALL REN WITHIN REACH. CONTINUE TO OSEBRVE AND MONITOR.
[2018-11-26] MEDS ORDERED: FERROUS SULF325 M2 PO (08:40)
[2018-11-26] MEDS ORDERED: LEVAQUIN750 MG PO (08:41)
[2018-11-26 09:29] VITALS: BP 140/63
--- NOTE | 2018-11-26 12:20 | NUR ---
PT IS SITTING IN THE CHAIR. NO DISTRESS NOTED. IV SITE IS FREE FROM REDNESS OR EDEMA. WAITING ON FAMILY.
--- NOTE | 2018-11-26 12:53 | NUR ---
DISCHARGE INSTRUCTIONS GIVEN AND VERBALIZED UNDERSTANDING. IV SITE DISCONTINUED CATHETER INTACT. NO REDNESS OR EDEMA FAMILY IN THE ROOM. Discharge instructions given. Patient verbalizes understanding of same. Discharged in stable condition via Wheelchair to Home with family. All belongings sent with pt.
== END 2018-11-26 12:53 | disposition home or self-care (01) | DRG 194 ==
LOC: ED 09:58 → ED-I 12:49 → ED 13:11 → MS2 13:12
PROVIDERS: Emergency Medicine; ADMIT Internal Medicine Geriatric Medicine; ATTEND Internal Medicine Geriatric Medicine
DX: J12.9 Viral pneumonia, unspecified (principal); N17.9 Acute kidney failure, unspecified; I13.0 Hypertensive heart and chronic kidney disease with heart failure and stage 1 through stage 4 chronic kidney disease, or unspecified chronic kidney disease; I50.9 Heart failure, unspecified; E11.22 Type 2 diabetes mellitus with diabetic chronic kidney disease; N18.9 Chronic kidney disease, unspecified; E11.69 Type 2 diabetes mellitus with other specified complication; E78.5 Hyperlipidemia, unspecified; E11.42 Type 2 diabetes mellitus with diabetic polyneuropathy; I25.10 Atherosclerotic heart disease of native coronary artery without angina pectoris; K21.9 Gastro-esophageal reflux disease without esophagitis; M19.90 Unspecified osteoarthritis, unspecified site; E87.5 Hyperkalemia; G89.29 Other chronic pain; M54.5 Low back pain; S29.011A Strain of muscle and tendon of front wall of thorax, initial encounter; X58.XXXA Exposure to other specified factors, initial encounter; Z95.1 Presence of aortocoronary bypass graft; Z79.4 Long term (current) use of insulin; Z95.2 Presence of prosthetic heart valve
CPT/HCPCS: G0378

== ENCOUNTER → 2018-12-06 | Outpatient (REF) ==
[~2018-12-06] MED LIST changes: +LEVAQUIN750 MG PO
== END | disposition home or self-care (01) | DRG 305 ==
LOC: LAB 09:58
PROVIDERS: ATTEND Internal Medicine Geriatric Medicine
DX: I10 Essential (primary) hypertension (principal)

== ENCOUNTER 2019-03-29 08:35 | Observation (INO) | payer MEDICARE ==
[~2019-03-29] VITALS: Ht 177.8 cm; Wt 104.4 kg
[2019-03-29 08:50] VITALS: BP 134/56
[2019-03-29 09:18] LABS: IMMATURE GRANULOCYTES 0.4 % (0.0-5.0); MEAN CELL VOLUME 92.7 fL CALC (80.0-100.0); MEAN CORPUSCULAR HGB CONC 32.4 g/L CALC (32.0-36.0); NEUT# 6.21 thou/uL (1.82-7.42); RED BLOOD COUNT 4.4 mill/uL (4.70-6.10); RED CELL DISTRI WIDTH 14.3 % (11.5-15.5)
[2019-03-29 09:19] LABS: HEMATOCRIT 40.8 % (39.0-50.0); HEMOGLOBIN 13.2 g/dl (14.0-18.0)
[2019-03-29 09:42] LABS: ALBUMIN 4.3 g/dL (3.2-5.0); BILIRUBIN, TOTAL 0.7 mg/dL (0.0-1.4); CREATININE 1.6 mg/dL (0.7-1.3)
[2019-03-29] MEDS ORDERED: OXYCODO-APAP1 TA2 PO (10:04)
[2019-03-29] MEDS ORDERED: NOVOLIN 70/30 SC (10:06)
[2019-03-29] MEDS ORDERED: POT CHLORIDE10 ME5 PO (10:08)
[2019-03-29] MEDS ORDERED: GLIPIZIDE ER5 MG PO (10:12)
[2019-03-29 12:00] VITALS: BP 154/62
[2019-03-29 14:03] LABS: CREATININE 1.6 mg/dL (0.7-1.3)
[2019-03-29 14:27] LABS: POTASSIUM 5.7 mmol/l (3.5-5.1)
[2019-03-29 15:18] LABS: URINE BILIRUBIN - DIPSTICK NEGATIVE (NEGATIVE); URINE BLOOD DIPSTICK NEGATIVE (NEGATIVE); URINE COLOR YELLOW; URINE GLUCOSE - DIPSTICK NEGATIVE (NEGATIVE); URINE KETONE NEGATIVE (NEGATIVE); URINE LEUK ESTERASE NEGATIVE (Negative); URINE NITRITE - DIPSTICK NEGATIVE (Negative); URINE PROTEIN - DIPSTICK NEGATIVE (NEG-TRACE); URINE SPECIFIC GRAVITY 1.025; URINE UROBILINOGEN - DIPSTICK 0.2 E.U./dL (0.2)
[2019-03-29 15:22] LABS: URINE CLARITY CLEAR
[2019-03-29 16:10] VITALS: BP 176/81
[2019-03-29 16:24] VITALS: BP 173/60
[2019-03-29 17:10] VITALS: BP 160/64
[2019-03-29 19:20] VITALS: BP 169/74
[2019-03-30 00:07] VITALS: BP 113/55
[2019-03-30 04:04] VITALS: BP 129/55
[2019-03-30 05:26] LABS: HEMATOCRIT 38.7 % (39.0-50.0); HEMOGLOBIN 12.6 g/dl (14.0-18.0); MEAN CELL VOLUME 91.5 fL CALC (80.0-100.0); MEAN CORPUSCULAR HGB 29.8 pG CALC (26.0-32.0); MEAN CORPUSCULAR HGB CONC 32.6 g/L CALC (32.0-36.0); NEUT# 5.81 thou/uL (1.82-7.42); RED BLOOD COUNT 4.23 mill/uL (4.70-6.10); RED CELL DISTRI WIDTH 13.9 % (11.5-15.5)
[2019-03-30 05:47] LABS: ALBUMIN 3.9 g/dL (3.2-5.0); BILIRUBIN, TOTAL 0.6 mg/dL (0.0-1.4); CREATININE 1.4 mg/dL (0.7-1.3); POTASSIUM 4.7 mmol/l (3.5-5.1); TOTAL PROTEIN 6.3 g/dL (6.3-8.2)
[2019-03-30 08:35] VITALS: BP 134/52
== END 2019-03-30 09:54 | disposition home or self-care (01) ==
LOC: MS2 08:35
PROVIDERS: ADMIT Internal Medicine Geriatric Medicine; ATTEND Internal Medicine Geriatric Medicine
DX: E87.5 Hyperkalemia (principal); N17.9 Acute kidney failure, unspecified; J40 Bronchitis, not specified as acute or chronic; I13.0 Hypertensive heart and chronic kidney disease with heart failure and stage 1 through stage 4 chronic kidney disease, or unspecified chronic kidney disease; E11.22 Type 2 diabetes mellitus with diabetic chronic kidney disease; N18.9 Chronic kidney disease, unspecified; I50.9 Heart failure, unspecified; I25.810 Atherosclerosis of coronary artery bypass graft(s) without angina pectoris; E11.69 Type 2 diabetes mellitus with other specified complication; E78.5 Hyperlipidemia, unspecified; M19.90 Unspecified osteoarthritis, unspecified site; F19.20 Other psychoactive substance dependence, uncomplicated; K21.9 Gastro-esophageal reflux disease without esophagitis; G89.29 Other chronic pain; M54.5 Low back pain; Z95.1 Presence of aortocoronary bypass graft

== ENCOUNTER 2021-03-27 14:57 | Observation (INO) | payer MEDICARE ==
[~2021-03-27] VITALS: Ht 177.8 cm; Wt 106.0 kg
[~2021-03-27 14:57] MED LIST changes: +GLIPIZIDE ER5 MG PO; +OXYCODO-APAP1 TA2 PO; +POT CHLORIDE10 ME5 PO
--- NOTE | 2021-03-27 15:12 | NUR ---
TO ROOM FOR TRIAGE
[2021-03-27 15:59] LABS: HEMOGLOBIN 15.3 g/dl (14.0-18.0); IMMATURE GRANULOCYTES 0.1 % (0.0-5.0); MEAN CELL VOLUME 95.4 fL CALC (80.0-100.0); MEAN CORPUSCULAR HGB 29.5 pG CALC (26.0-32.0); MEAN CORPUSCULAR HGB CONC 30.9 g/dL CAL (32.0-36.0); NEUT# 6.91 thou/uL (1.82-7.42); RED BLOOD COUNT 5.19 mill/uL (4.70-6.10); RED CELL DISTRI WIDTH 16.1 % (11.5-15.5)
[2021-03-27 16:00] LABS: HEMATOCRIT 49.5 % (39.0-50.0)
[2021-03-27 16:10] LABS: ALBUMIN 3.8 g/dL (3.2-5.0); CREATININE 1.8 mg/dL (0.7-1.3); POTASSIUM 4.7 mmol/l (3.5-5.1); TOTAL PROTEIN 6.9 g/dL (6.3-8.2)
[2021-03-27 16:13] LABS: BILIRUBIN, TOTAL 1.5 mg/dL (0.0-1.4)
[2021-03-27] MEDS ORDERED: CILOSTAZOL100 MG PO (16:36)
[2021-03-27] MEDS ORDERED: METOPROL TAR25 MG PO (16:37)
[2021-03-27] MEDS ORDERED: XARELTO10 MG PO (16:37)
[2021-03-27] MEDS ORDERED: TRELEGY ELLIPTA1 AE1 IN (16:38)
--- NOTE | 2021-03-27 18:05 | NUR ---
PATIENT OFFERED JUICE AND CEREAL BAR PER PATIENT REQUEST. SWALLOW SCREEN COMPLETED. PATIENT TOLERATING WELL
--- NOTE | 2021-03-27 19:30 | NUR ---
Admission Note Report Given to: MATTHEW SHAW Transported by: Wheelchair X Stretcher Transported with: X Nurse Transporter X Patent IV X O2 X Electrical Mechanic Location: ICU X MS2 TX TO ROOM 280.
--- NOTE | 2021-03-27 19:30 | NUR ---
TELEPHONE REPORT RECEIVED FROM Nancy GONSALVES RN IN ED. ROOM 280 PREPARED TO RECEIVE PT.
[2021-03-27 19:37] VITALS: BP 145/72
--- NOTE | 2021-03-27 19:37 | NUR ---
PT ARRIVES TO UNIT VIA STRETCHER ACCOMPANIED BY Nancy GONSALVES RN, PT AMBULATORY TO BED FROM STRETCHER WITH STANDBY ASSIST. GAIT APPEARS TO BE UNSTEADY. PT INSTRUCTED NOT TO GET OOB WITHOUT ASSISTANCE AND INSTRUCTED ON HOW TO USE CALL REN. PT VERBALIZES UNDERSTANDING AND AGREEMENT.
--- NOTE | 2021-03-27 19:40 | NUR ---
POINT OF CARE GLUCOSE 132 mg/dl REPORTED BY Rachael PRABHAKAR CNA.
--- NOTE | 2021-03-27 19:45 | NUR ---
ADMISSION AND ASSESMENT COMPLETED. PT IS ALERT, ORIENTED, AND COOPERATIVE. TELE #[id number] ON PT, RHYTHM SB 53 W/ PVCs AND PACs. R-AC #20G SALINE LOCK PATENT. LARGE BRUISE FROM UNSUCCESFUL IV ATTEMPT TO INNER ASPECT OF L-AC NOTED TO STILL BE BLEEDING. 2X2 AND COBAN APPLIED. LUNGS CLEAR. REPSIRATIONS REGULAR AND UNLABORED. SP02 98% ON ROOM AIR. ABD OBTUSE AND SOFT WITH POSITIVE BOWEL SOUNDS. PT REPORTS HE WAS FEELING CONSTIPATED AND TOOK A LAXATIVE AND ENEMA THIS MORNING, RESULTING IN LARGE BM. BLE RED AND SCALEY, COOL AND DRY, PULSES PALPABLE, CAP REFILL BRISK. PLAN OF CARE REVIEWED WITH PT, PT VERBALIZES UNDERSTANDING. REQUESTS SOMETHING TO EAT AND DENIES FURTHER NEEDS AT THIS TIME. CALL REN WITHIN REACH, AGREES TO CALL PRN.
--- NOTE | 2021-03-27 20:15 | NUR ---
IV LASIX DUE TO BE ADMINISTERED. SPOKE WITH DR. DREW TO VERIFY IF IT WOULD BE APPROPRIATE TO HOLD DOSE UNTIL 0600 TO REDUCE RISK OF INJURY AND ENCOURAGE COMFORT AND REST FOR PT. ORDER IS TO CONTINUE WITH DOSE PREVIOUSLY ORDERED.
--- NOTE | 2021-03-27 20:50 | NUR ---
200 ML CLEAR YELLOW URINE EMPTIED FROM URINAL. URINE SAMPLE COLLECTED AND SENT TO LAB AT THIS TIME.
--- NOTE | 2021-03-27 20:50 | NUR ---
SCHEDULED MEDICATIONS AND PRN PERCOCET FOR REPORTED CHRONIC BACK AND BLE PAIN 02/04 ADMINISTERED. SEE E-MAR.
--- NOTE | 2021-03-27 21:00 | NUR ---
"AFTER HOURS" DIABETIC DINNER TRAY PROVIDED.
[2021-03-27 21:41] LABS: URINE BILIRUBIN - DIPSTICK NEGATIVE (NEGATIVE); URINE BLOOD DIPSTICK SMALL (NEGATIVE); URINE COLOR YELLOW; URINE GLUCOSE - DIPSTICK NEGATIVE (NEGATIVE); URINE KETONE NEGATIVE (NEGATIVE); URINE LEUK ESTERASE NEGATIVE (NEGATIVE); URINE PROTEIN - DIPSTICK TRACE mg/dL (NEG-TRACE); URINE SPECIFIC GRAVITY 1.025; URINE UROBILINOGEN - DIPSTICK 0.2 E.U./dL (0.2)
[2021-03-27 21:43] LABS: URINE NITRITE - DIPSTICK NEGATIVE (Negative)
[2021-03-28] VITALS: BP 144/72
--- NOTE | 2021-03-28 00:20 | NUR ---
Yolis DOZIER PLATING AND POINT ASSEMBLY SUPERVISOR IN ROOM COLLECTING BLOOD WORK.
--- NOTE | 2021-03-28 01:09 | NUR ---
PT APPEARS TO BE SLEEPING COMFORTABLY. LAYING IN BED, EYES CLOSED, SNORING GENTLY. RESPIRATIONS REGULAR AND UNLABORED. CALL REN REMAINS WITHIN REACH.
--- NOTE | 2021-03-28 01:33 | NUR ---
TROPONIN RESULTS RECEIVED AND ASSESED. TROPONIN 0.031ng/ml.
[2021-03-28 04:00] VITALS: BP 132/60
--- NOTE | 2021-03-28 05:13 | NUR ---
Yolis DOZIER RUFFLING MACHINE OPERATOR IN ROOM COLLECTING BLOOD WORK.
[2021-03-28 06:04] LABS: HEMATOCRIT 44.2 % (39.0-50.0); IMMATURE GRANULOCYTES 0.1 % (0.0-5.0); MEAN CORPUSCULAR HGB 29.8 pG CALC (26.0-32.0); MEAN CORPUSCULAR HGB CONC 31.7 g/dL CAL (32.0-36.0); NEUT# 5.44 thou/uL (1.82-7.42); RED BLOOD COUNT 4.7 mill/uL (4.70-6.10); RED CELL DISTRI WIDTH 16.4 % (11.5-15.5)
[2021-03-28 06:22] LABS: ALBUMIN 3.3 g/dL (3.2-5.0); BILIRUBIN, TOTAL 1.2 mg/dL (0.0-1.4); CREATININE 1.6 mg/dL (0.7-1.3); MAGNESIUM 1.8 mg/dL (1.6-2.3); POTASSIUM 4.6 mmol/l (3.5-5.1); TOTAL PROTEIN 5.8 g/dL (6.3-8.2)
[2021-03-28 07:27] VITALS: BP 97/49
--- NOTE | 2021-03-28 09:45 | NUR ---
Hermila BOYLE AT BEDSIDE FOR PT CONSULT/EVAL
--- NOTE | 2021-03-28 12:18 | NUR ---
PT SITTING ON THE SIDE OF THE BED. NO DISTRESS OR NEEDS AT THIS TIME. CALL LIGHT WITHIN REACH.
[2021-03-28 12:20] VITALS: BP 113/61
--- NOTE | 2021-03-28 12:26 | NUR ---
PER ED YUMIKO LONDONO LPN, PT IS IN AFIB WITH RATE OF 72. D DEBBIE DIRECTOR OF MARKETING OPERATIONS NOTIFIED, PER DIRECTOR OF MARKETING OPERATIONS PT HAS A HX OF AFIB. NO NEW ORDERS OBTAINED AT THIS TIME.
[2021-03-28 14:57] VITALS: BP 166/65
--- NOTE | 2021-03-28 14:57 | NUR ---
D/C INSTRUCTIONS GIVEN TO PT AND DAUGHTER. BOTH VERBALIZE UNDERSTANDING OF SAME.
--- NOTE | 2021-03-28 15:00 | NUR ---
Discharge instructions given. Patient verbalizes understanding of same. Discharged in stable condition via Wheelchair to Home with staff. All belongings sent with pt.
== END 2021-03-28 15:00 ==
LOC: ED 14:57 → ED-I 18:33 → ED 18:45 → MS2 18:46
PROVIDERS: Family Medicine; ADMIT Internal Medicine; ATTEND Internal Medicine
DX: R00.1 Bradycardia, unspecified (principal); I13.0 Hypertensive heart and chronic kidney disease with heart failure and stage 1 through stage 4 chronic kidney disease, or unspecified chronic kidney disease; I50.9 Heart failure, unspecified; E11.22 Type 2 diabetes mellitus with diabetic chronic kidney disease; N18.9 Chronic kidney disease, unspecified; I48.91 Unspecified atrial fibrillation; K21.9 Gastro-esophageal reflux disease without esophagitis; I25.10 Atherosclerotic heart disease of native coronary artery without angina pectoris; E78.5 Hyperlipidemia, unspecified; Z95.1 Presence of aortocoronary bypass graft; Z79.4 Long term (current) use of insulin; Z79.01 Long term (current) use of anticoagulants; Z95.2 Presence of prosthetic heart valve; Z20.822 Contact with and (suspected) exposure to COVID-19
CPT/HCPCS: G0378

== ENCOUNTER 2021-06-21 12:02 | Emergency (ER) | payer MEDICARE ==
[~2021-06-21] VITALS: Ht 177.8 cm; Wt 75.0 kg
[~2021-06-21 12:02] MED LIST changes: +METOPROL TAR25 MG PO; +TRELEGY ELLIPTA1 AE1 IN; +XARELTO10 MG PO
[2021-06-21] MEDS ORDERED: KEFLEX500 MG PO (13:31)
[2021-06-21 13:40] VITALS: BP 124/57
== END 2021-06-21 13:40 | disposition home or self-care (01) ==
LOC: ED 12:02
PROC: 0HQDXZZ Repair Right Lower Arm Skin, External Approach (ICD-10-PCS; principal; 2021-06-21)
DX: S51.811A Laceration without foreign body of right forearm, initial encounter (principal); I11.0 Hypertensive heart disease with heart failure; I50.9 Heart failure, unspecified; I25.10 Atherosclerotic heart disease of native coronary artery without angina pectoris; E11.9 Type 2 diabetes mellitus without complications; K21.9 Gastro-esophageal reflux disease without esophagitis; E78.5 Hyperlipidemia, unspecified; F17.200 Nicotine dependence, unspecified, uncomplicated; W29.8XXA Contact with other powered hand tools and household machinery, initial encounter; Y93.89 Activity, other specified; Z95.1 Presence of aortocoronary bypass graft; Z79.4 Long term (current) use of insulin; Z79.01 Long term (current) use of anticoagulants; Z95.2 Presence of prosthetic heart valve

== ENCOUNTER 2022-03-05 15:13 | Emergency (ER) | payer MEDICARE ==
[2022-03-05] VITALS (34 sets, daily range): BP systolic 74–99; BP diastolic 37–65
[~2022-03-05] VITALS: Ht 180.3 cm; Wt 86.3 kg
[~2022-03-05 15:13] MED LIST changes: +ENTRESTO 24-261 TAB PO; +FE TABS325 MG PO; +HUMULIN 70/30 SC; +KEFLEX500 MG PO; +TRELEGY ELLIPTA1 AER PO
[2022-03-05 16:02] LABS: HEMATOCRIT 46.6 % (39.0-50.0); HEMOGLOBIN 14.2 g/dl (14.0-18.0); IMMATURE GRANULOCYTES 0.2 % (0.0-5.0); MEAN CELL VOLUME 100.9 fL CALC (80.0-100.0); MEAN CORPUSCULAR HGB 30.7 pG CALC (26.0-32.0); MEAN CORPUSCULAR HGB CONC 30.5 g/dL CAL (32.0-36.0); NEUT# 10.81 thou/uL (1.82-7.42); RED BLOOD COUNT 4.62 mill/uL (4.70-6.10); RED CELL DISTRI WIDTH 15.2 % (11.5-15.5)
[2022-03-05 16:26] LABS: ALBUMIN 4.2 g/dL (3.2-5.0); BILIRUBIN, TOTAL 2.2 mg/dL (0.0-1.4); CREATININE 2.8 mg/dL (0.7-1.3); POTASSIUM 5.3 mmol/l (3.5-5.1); TOTAL PROTEIN 7.5 g/dL (6.3-8.2)
[2022-03-05 18:00] LABS: URINE BLOOD DIPSTICK SMALL (NEGATIVE); URINE COLOR BROWN; URINE GLUCOSE - DIPSTICK NEGATIVE (NEGATIVE); URINE KETONE TRACE mg/dL (NEGATIVE); URINE LEUK ESTERASE NEGATIVE (NEGATIVE); URINE PROTEIN - DIPSTICK 100 mg/dL (NEG-TRACE); URINE SPECIFIC GRAVITY >=1.030
[2022-03-05 18:08] LABS: URINE BILIRUBIN - DIPSTICK MODERATE (NEGATIVE); URINE NITRITE - DIPSTICK NEGATIVE (Negative)
[2022-03-05 18:09] LABS: URINE AMORPH SEDIMENT MODERATE hpf (NONE-FER)
== END 2022-03-05 21:32 | disposition short-term general hospital (02) ==
LOC: ED 15:13
PROVIDERS: Emergency Medicine
PROC: 0T9B70Z Drainage of Bladder with Drainage Device, Via Natural or Artificial Opening (ICD-10-PCS; principal; 2022-03-05)
DX: I95.9 Hypotension, unspecified (principal); R79.89 Other specified abnormal findings of blood chemistry; N39.0 Urinary tract infection, site not specified; I13.0 Hypertensive heart and chronic kidney disease with heart failure and stage 1 through stage 4 chronic kidney disease, or unspecified chronic kidney disease; E11.22 Type 2 diabetes mellitus with diabetic chronic kidney disease; N18.9 Chronic kidney disease, unspecified; I50.9 Heart failure, unspecified; I48.91 Unspecified atrial fibrillation; Z79.4 Long term (current) use of insulin; Z79.84 Long term (current) use of oral hypoglycemic drugs; Z95.0 Presence of cardiac pacemaker; Z20.822 Contact with and (suspected) exposure to COVID-19

== ENCOUNTER 2022-04-01 10:59 | Observation (INO) | payer MEDICARE ==
[2022-04-01] VITALS (11 sets, daily range): BP systolic 90–124; BP diastolic 39–67
[~2022-04-01] VITALS: Ht 180.3 cm; Wt 93.0 kg
--- NOTE | 2022-04-01 12:03 | NUR ---
PT TO ROOM VIA WC
[2022-04-01 12:58] LABS: MEAN CELL VOLUME 100.5 fL CALC (80.0-100.0); MEAN CORPUSCULAR HGB 30.5 pG CALC (26.0-32.0); MEAN CORPUSCULAR HGB CONC 30.4 g/dL CAL (32.0-36.0); NEUT# 4.15 thou/uL (1.82-7.42); RED BLOOD COUNT 3.9 mill/uL (4.70-6.10); RED CELL DISTRI WIDTH 15.2 % (11.5-15.5)
[2022-04-01 13:23] LABS: HEMATOCRIT 39.2 % (39.0-50.0); HEMOGLOBIN 11.9 g/dl (14.0-18.0)
[2022-04-01 13:32] LABS: ALBUMIN 3.7 g/dL (3.2-5.0); BILIRUBIN, TOTAL 1.8 mg/dL (0.0-1.4); POTASSIUM 5.1 mmol/l (3.5-5.1); TOTAL PROTEIN 6.6 g/dL (6.3-8.2)
[2022-04-01 13:38] LABS: CREATININE 1.6 mg/dL (0.7-1.3)
[2022-04-01 14:31] LABS: URINE BILIRUBIN - DIPSTICK NEGATIVE (NEGATIVE); URINE BLOOD DIPSTICK SMALL (NEGATIVE); URINE COLOR YELLOW; URINE GLUCOSE - DIPSTICK NEGATIVE (NEGATIVE); URINE KETONE NEGATIVE (NEGATIVE); URINE LEUK ESTERASE NEGATIVE (NEGATIVE); URINE PH 6.5 (4.5-8.0); URINE PROTEIN - DIPSTICK NEGATIVE (NEG-TRACE)
[2022-04-01 14:32] LABS: URINE NITRITE - DIPSTICK NEGATIVE (Negative); URINE RBC 0-2 RBC/hpf (0-5)
[2022-04-01] MEDS ORDERED: NOVOLIN N100 UNIT/3 (14:56)
[2022-04-01] MEDS ORDERED: BAYER ASPIRIN E81 MG PO (14:57)
[2022-04-01] MEDS ORDERED: CARVEDILOL3.125 MG PO (14:57)
[2022-04-01] MEDS ORDERED: SPIRONOLACT25 MG PO (14:58)
[2022-04-01] MEDS ORDERED: ELIQUIS5 MG PO (14:58)
[2022-04-01] MEDS ORDERED: DIGOXIN0.125 MG PO (14:59)
[2022-04-01] MEDS ORDERED: OXYCODO-APAP1 TA2 PO (15:00)
[2022-04-01] MEDS ORDERED: TAMSULOSIN HCL0.4 MG PO (15:00)
[2022-04-01] MEDS ORDERED: ENTRESTO 24-261 TAB PO (15:01)
--- NOTE | 2022-04-01 15:24 | NUR ---
LASIX WAS ORDERED, BUT PATIENT WAS SENT TO US. AWAITING PATIENT RETURN.
--- NOTE | 2022-04-01 15:49 | NUR ---
PATIENT RETURNED FROM IMAGING.
--- NOTE | 2022-04-01 16:26 | NUR ---
REPORT GIVEN TO LANE. ROOM 261.
--- NOTE | 2022-04-01 16:36 | NUR ---
RECEIVE PATIENT AND REPORT FROM CAPRI DE JESUS RN. PATIENT ALERT AND ORIENTED X3. STABLE AT THIS TIME. PATIENT IS EDUCATED ABOUD ADMISSION PROCESS, PLAN OF CARE AND MEDICATIONS PATIENT REFER UNDERSTAND.
--- NOTE | 2022-04-01 19:15 | NUR ---
nURSING AID STATED THAT PATIENT O2 SATURATION IS 86. PATIENT PLACED ON 2L NC. O2 SATURATION INCREASED TO 96. PATIENT AOX3. NO DISTRESS NOTED. PATIENT HAS NO COMPLAINTS AT THIS TIME. BED ALARM INITIATED. FALL PRECAUTIONS IN PLACE. CALL REN AND BEDSIDE TABLE WITHIN REACH.
[2022-04-02 00:27] VITALS: BP 114/61
[2022-04-02 04:47] VITALS: BP 125/60
[2022-04-02 06:08] LABS: HEMATOCRIT 37.6 % (39.0-50.0); HEMOGLOBIN 11.7 g/dl (14.0-18.0); MEAN CELL VOLUME 97.9 fL CALC (80.0-100.0); MEAN CORPUSCULAR HGB 30.5 pG CALC (26.0-32.0); MEAN CORPUSCULAR HGB CONC 31.1 g/dL CAL (32.0-36.0); RED BLOOD COUNT 3.84 mill/uL (4.70-6.10); RED CELL DISTRI WIDTH 15.1 % (11.5-15.5)
[2022-04-02 06:09] LABS: ANION GAP 13 (6-22 (CALC)); BUN 47 mg/dL (8-23); BUN/CREATININE RATIO 35 (12-20 (CALC)); CARBON DIOXIDE 27 mmol/l (22-30); CHLORIDE 105 mmol/l (95-108); CREATININE 1.3 mg/dL (0.7-1.3); GFR FOR AFR.AMER. > 60 ML/MIN (>=60 (CALC)); GFR OTHER RACES 53 ML/MIN (>=60 (CALC)); MAGNESIUM 2.3 mg/dL (1.6-2.3); POTASSIUM 4.9 mmol/l (3.5-5.1); SODIUM 140 mmol/l (137-146)
--- NOTE | 2022-04-02 07:00 | NUR ---
RECEIVE REPORT FROM MARGE CASTRO.
[2022-04-02 07:20] VITALS: BP 156/63
[2022-04-02 08:00] VITALS: BP 156/63
--- NOTE | 2022-04-02 08:00 | NUR ---
PATIENT ALERT AND ORIENTED X3. PATIENT DOES NOT REFER ANY PAIN OR DISCONFORT AT THIS TIME. PATIENT IS EDUCATED ABOUD MEDICATIONS AND NURSING PLAN FOR TODAY. PATIENT REFER UNDERSTAND. FALL AND SAFETY PRECAUTIONS IN PLACE. CALL LIGHT IS WITHIN REACH.
--- NOTE | 2022-04-02 10:30 | NUR ---
SOAP ENEMA DONE.
[2022-04-02] MEDS ORDERED: MILK OF MAG2 PO (10:40)
[2022-04-02 11:20] VITALS: BP 123/64
--- NOTE | 2022-04-02 12:51 | NUR ---
PATIENT RESTING IN BED, STABLE AT THIS TIME. WALK TEST DONE.
--- NOTE | 2022-04-02 15:02 | NUR ---
Discharge instructions given. Patient verbalizes understanding of same. Discharged in stable condition via Wheelchair to Home with family. All belongings sent with pt.
== END 2022-04-02 15:07 ==
LOC: ED 10:59 → ED-I 14:24 → ED 14:37 → MS2 14:38
PROVIDERS: Family Medicine; ADMIT Hospitalist; ATTEND Hospitalist
DX: I11.0 Hypertensive heart disease with heart failure (principal); I50.9 Heart failure, unspecified; I48.91 Unspecified atrial fibrillation; I25.10 Atherosclerotic heart disease of native coronary artery without angina pectoris; E11.51 Type 2 diabetes mellitus with diabetic peripheral angiopathy without gangrene; E11.69 Type 2 diabetes mellitus with other specified complication; E78.5 Hyperlipidemia, unspecified; K21.9 Gastro-esophageal reflux disease without esophagitis; Z95.2 Presence of prosthetic heart valve; Z95.1 Presence of aortocoronary bypass graft; Z95.810 Presence of automatic (implantable) cardiac defibrillator; Z79.4 Long term (current) use of insulin; Z20.822 Contact with and (suspected) exposure to COVID-19

== ENCOUNTER 2022-06-02 16:46 | Inpatient (IN) | payer MEDICARE ==
[~2022-06-02] VITALS: Ht 177.8 cm; Wt 97.0 kg
[2022-06-02] VITALS (104 sets, daily range): BP systolic 57–128; BP diastolic 29–83
[~2022-06-02 16:46] MED LIST changes: +BAYER ASPIRIN E81 MG PO; +DIGOXIN62.5 MCG PO; +ELIQUIS5 MG PO; -FUROSEMIDE20 MG PO; -GLIPIZIDE ER5 MG PO; +LASIX 40 MG TAB40 MG PO; +MILK OF MAG2 PO; +SPIRONOLACT25 MG PO; +TAMSULOSIN HCL0.4 MG PO; +VITAMIN B-121000 MC4 PO; -VITAMIN B-12500 MCG PO
[2022-06-02 18:00] LABS: HEMOGLOBIN 9.9 g/dl (14.0-18.0); IMMATURE GRANULOCYTES 0.2 % (0.0-5.0); MEAN CORPUSCULAR HGB 27.9 pG CALC (26.0-32.0); MEAN CORPUSCULAR HGB CONC 31.5 g/dL CAL (32.0-36.0); NEUT# 3.67 thou/uL (1.82-7.42); RED BLOOD COUNT 3.55 mill/uL (4.70-6.10); RED CELL DISTRI WIDTH 15.6 % (11.5-15.5)
[2022-06-02 18:02] LABS: HEMATOCRIT 31.4 % (39.0-50.0); MEAN CELL VOLUME 88.5 fL CALC (80.0-100.0)
[2022-06-02 18:08] LABS: ALBUMIN 3.2 g/dL (3.2-5.0); CREATININE 1.9 mg/dL (0.7-1.3); TOTAL PROTEIN 5.8 g/dL (6.3-8.2)
[2022-06-02 18:09] LABS: BILIRUBIN, TOTAL 0.7 mg/dL (0.0-1.4); POTASSIUM 5.9 mmol/l (3.5-5.1)
[2022-06-03] VITALS (75 sets, daily range): BP systolic 39–133; BP diastolic 23–83
[2022-06-03 02:21] LABS: URINE BILIRUBIN - DIPSTICK NEGATIVE (NEGATIVE); URINE BLOOD DIPSTICK NEGATIVE (NEGATIVE); URINE COLOR YELLOW; URINE GLUCOSE - DIPSTICK NEGATIVE (NEGATIVE); URINE KETONE NEGATIVE (NEGATIVE); URINE LEUK ESTERASE NEGATIVE (NEGATIVE); URINE NITRITE - DIPSTICK NEGATIVE (Negative); URINE PROTEIN - DIPSTICK NEGATIVE (NEG-TRACE); URINE SPECIFIC GRAVITY 1.015; URINE UROBILINOGEN - DIPSTICK 0.2 E.U./dL (0.2)
[2022-06-03 05:37] LABS: HEMATOCRIT 36.9 % (39.0-50.0); HEMOGLOBIN 11.6 g/dl (14.0-18.0); IMMATURE GRANULOCYTES 0.1 % (0.0-5.0); MEAN CELL VOLUME 89.8 fL CALC (80.0-100.0); MEAN CORPUSCULAR HGB 28.2 pG CALC (26.0-32.0); MEAN CORPUSCULAR HGB CONC 31.4 g/dL CAL (32.0-36.0); NEUT# 7.67 thou/uL (1.82-7.42); RED BLOOD COUNT 4.11 mill/uL (4.70-6.10); RED CELL DISTRI WIDTH 15.5 % (11.5-15.5)
[2022-06-03 06:41] LABS: ALBUMIN 3.4 g/dL (3.2-5.0); CREATININE 1.6 mg/dL (0.7-1.3); TOTAL PROTEIN 6.3 g/dL (6.3-8.2)
[2022-06-03 06:51] LABS: BILIRUBIN, TOTAL 1.1 mg/dL (0.0-1.4)
[2022-06-03 06:52] LABS: POTASSIUM 6.2 mmol/l (3.5-5.1)
[2022-06-03] MEDS ORDERED: TRIAMCINOLON0.11 EX (10:54)
[2022-06-03 18:14] LABS: ALBUMIN 3.2 g/dL (3.2-5.0); BUN 48 mg/dL (8-23); CARBON DIOXIDE 19 mmol/l (22-30); CHLORIDE 109 mmol/l (95-108); CREATININE 1.2 mg/dL (0.7-1.3); GFR FOR AFR.AMER. > 60 ML/MIN (>=60 (CALC)); GFR OTHER RACES 58 ML/MIN (>=60 (CALC)); SODIUM 137 mmol/l (137-146)
[2022-06-03 18:18] LABS: POTASSIUM 5.2 mmol/l (3.5-5.1)
[2022-06-04] VITALS (86 sets, daily range): BP systolic 73–134; BP diastolic 33–101
[2022-06-04 05:31] LABS: HEMOGLOBIN 10.8 g/dl (14.0-18.0); MEAN CELL VOLUME 89.3 fL CALC (80.0-100.0); MEAN CORPUSCULAR HGB 27.6 pG CALC (26.0-32.0); MEAN CORPUSCULAR HGB CONC 30.9 g/dL CAL (32.0-36.0); RED BLOOD COUNT 3.92 mill/uL (4.70-6.10); RED CELL DISTRI WIDTH 15.6 % (11.5-15.5)
[2022-06-04 05:43] LABS: ALBUMIN 3.2 g/dL (3.2-5.0); ALKALINE PHOSPHATASE 169 u/l (38-126); ANION GAP 12 (6-22 (CALC)); BILIRUBIN, TOTAL 1.2 mg/dL (0.0-1.4); BUN 44 mg/dL (8-23); BUN/CREATININE RATIO 38 (12-20 (CALC)); CARBON DIOXIDE 21 mmol/l (22-30); CHLORIDE 108 mmol/l (95-108); CREATININE 1.1 mg/dL (0.7-1.3); GFR FOR AFR.AMER. > 60 ML/MIN (>=60 (CALC)); GFR OTHER RACES > 60 ML/MIN (>=60 (CALC)); POTASSIUM 5.1 mmol/l (3.5-5.1); SGOT/AST 20 u/l (19-48); SODIUM 136 mmol/l (137-146)
[2022-06-04 06:01] LABS: LIPASE 2554 u/l (23-300); MAGNESIUM 1.7 mg/dL (1.6-2.3)
[2022-06-05] VITALS (54 sets, daily range): BP systolic 54–158; BP diastolic 40–100
[2022-06-05 04:57] LABS: ALBUMIN 3.3 g/dL (3.2-5.0); ALKALINE PHOSPHATASE 184 u/l (38-126); ANION GAP 15 (6-22 (CALC)); BILIRUBIN, TOTAL 1.2 mg/dL (0.0-1.4); BUN 36 mg/dL (8-23); BUN/CREATININE RATIO 35 (12-20 (CALC)); CARBON DIOXIDE 18 mmol/l (22-30); CHLORIDE 109 mmol/l (95-108); GFR FOR AFR.AMER. > 60 ML/MIN (>=60 (CALC)); GFR OTHER RACES > 60 ML/MIN (>=60 (CALC)); LIPASE 1485 u/l (23-300); MAGNESIUM 1.8 mg/dL (1.6-2.3); SGOT/AST 18 u/l (19-48); SODIUM 137 mmol/l (137-146); TOTAL PROTEIN 5.8 g/dL (6.3-8.2)
[2022-06-05 04:59] LABS: POTASSIUM 5.4 mmol/l (3.5-5.1)
[2022-06-05 05:10] LABS: HEMATOCRIT 36.7 % (39.0-50.0); HEMOGLOBIN 11.3 g/dl (14.0-18.0); MEAN CELL VOLUME 90.8 fL CALC (80.0-100.0); MEAN CORPUSCULAR HGB CONC 30.8 g/dL CAL (32.0-36.0); RED BLOOD COUNT 4.04 mill/uL (4.70-6.10); RED CELL DISTRI WIDTH 15.7 % (11.5-15.5)
[2022-06-06] VITALS (99 sets, daily range): BP systolic 76–157; BP diastolic 34–125
[2022-06-06 06:21] LABS: HEMATOCRIT 34.2 % (39.0-50.0); HEMOGLOBIN 10.6 g/dl (14.0-18.0); MEAN CORPUSCULAR HGB 27.9 pG CALC (26.0-32.0); RED BLOOD COUNT 3.8 mill/uL (4.70-6.10); RED CELL DISTRI WIDTH 15.7 % (11.5-15.5)
[2022-06-06 06:54] LABS: ALKALINE PHOSPHATASE 162 u/l (38-126); BUN 36 mg/dL (8-23); BUN/CREATININE RATIO 27 (12-20 (CALC)); CARBON DIOXIDE 20 mmol/l (22-30); CHLORIDE 111 mmol/l (95-108); CREATININE 1.3 mg/dL (0.7-1.3); GFR FOR AFR.AMER. > 60 ML/MIN (>=60 (CALC)); GFR OTHER RACES 53 ML/MIN (>=60 (CALC)); MAGNESIUM 1.9 mg/dL (1.6-2.3); SGOT/AST 15 u/l (19-48); SODIUM 137 mmol/l (137-146); TOTAL PROTEIN 5.4 g/dL (6.3-8.2)
[2022-06-06 06:56] LABS: ANION GAP 12 (6-22 (CALC)); BILIRUBIN, TOTAL 0.6 mg/dL (0.0-1.4); POTASSIUM 5.7 mmol/l (3.5-5.1)
[2022-06-07] VITALS (98 sets, daily range): BP systolic 63–130; BP diastolic 32–78
[2022-06-07 05:24] LABS: HEMATOCRIT 36.3 % (39.0-50.0); HEMOGLOBIN 11.1 g/dl (14.0-18.0); MEAN CELL VOLUME 91.7 fL CALC (80.0-100.0); MEAN CORPUSCULAR HGB CONC 30.6 g/dL CAL (32.0-36.0); RED BLOOD COUNT 3.96 mill/uL (4.70-6.10); RED CELL DISTRI WIDTH 16.2 % (11.5-15.5)
[2022-06-07 05:42] LABS: ALBUMIN 2.9 g/dL (3.2-5.0); ALKALINE PHOSPHATASE 151 u/l (38-126); BILIRUBIN, TOTAL 0.6 mg/dL (0.0-1.4); BUN 31 mg/dL (8-23); BUN/CREATININE RATIO 28 (12-20 (CALC)); CARBON DIOXIDE 21 mmol/l (22-30); CHLORIDE 113 mmol/l (95-108); CREATININE 1.1 mg/dL (0.7-1.3); GFR FOR AFR.AMER. > 60 ML/MIN (>=60 (CALC)); GFR OTHER RACES > 60 ML/MIN (>=60 (CALC)); MAGNESIUM 1.9 mg/dL (1.6-2.3); SGOT/AST 18 u/l (19-48); SODIUM 140 mmol/l (137-146); TOTAL PROTEIN 5.4 g/dL (6.3-8.2)
[2022-06-07 05:44] LABS: ANION GAP 10 (6-22 (CALC)); POTASSIUM 4.4 mmol/l (3.5-5.1)
[2022-06-08] VITALS (96 sets, daily range): BP systolic 79–131; BP diastolic 39–103
[2022-06-08 05:52] LABS: HEMATOCRIT 35.9 % (39.0-50.0); HEMOGLOBIN 10.9 g/dl (14.0-18.0); MEAN CELL VOLUME 90.7 fL CALC (80.0-100.0); MEAN CORPUSCULAR HGB 27.5 pG CALC (26.0-32.0); MEAN CORPUSCULAR HGB CONC 30.4 g/dL CAL (32.0-36.0); RED BLOOD COUNT 3.96 mill/uL (4.70-6.10); RED CELL DISTRI WIDTH 16.2 % (11.5-15.5)
[2022-06-08 06:20] LABS: ALBUMIN 3.1 g/dL (3.2-5.0); ALKALINE PHOSPHATASE 141 u/l (38-126); ANION GAP 13 (6-22 (CALC)); BILIRUBIN, TOTAL 0.8 mg/dL (0.0-1.4); BUN 29 mg/dL (8-23); BUN/CREATININE RATIO 27 (12-20 (CALC)); CARBON DIOXIDE 19 mmol/l (22-30); CHLORIDE 112 mmol/l (95-108); CREATININE 1.1 mg/dL (0.7-1.3); GFR FOR AFR.AMER. > 60 ML/MIN (>=60 (CALC)); GFR OTHER RACES > 60 ML/MIN (>=60 (CALC)); LIPASE 1069 u/l (23-300); MAGNESIUM 1.9 mg/dL (1.6-2.3); POTASSIUM 4.4 mmol/l (3.5-5.1); SGOT/AST 18 u/l (19-48); SODIUM 140 mmol/l (137-146); TOTAL PROTEIN 5.4 g/dL (6.3-8.2)
[2022-06-09] VITALS (63 sets, daily range): BP systolic 76–163; BP diastolic 44–132
[2022-06-09 05:01] LABS: HEMATOCRIT 36.8 % (39.0-50.0); HEMOGLOBIN 11.4 g/dl (14.0-18.0); MEAN CELL VOLUME 88.9 fL CALC (80.0-100.0); MEAN CORPUSCULAR HGB 27.5 pG CALC (26.0-32.0); RED BLOOD COUNT 4.14 mill/uL (4.70-6.10); RED CELL DISTRI WIDTH 16.2 % (11.5-15.5)
[2022-06-09 05:08] LABS: ALBUMIN 3.5 g/dL (3.2-5.0); ALKALINE PHOSPHATASE 148 u/l (38-126); ANION GAP 14 (6-22 (CALC)); BILIRUBIN, TOTAL 0.9 mg/dL (0.0-1.4); BUN 26 mg/dL (8-23); BUN/CREATININE RATIO 26 (12-20 (CALC)); CARBON DIOXIDE 19 mmol/l (22-30); CHLORIDE 111 mmol/l (95-108); GFR FOR AFR.AMER. > 60 ML/MIN (>=60 (CALC)); GFR OTHER RACES > 60 ML/MIN (>=60 (CALC)); LIPASE 359 u/l (23-300); POTASSIUM 4.1 mmol/l (3.5-5.1); SGOT/AST 18 u/l (19-48); SODIUM 139 mmol/l (137-146); TOTAL PROTEIN 6.3 g/dL (6.3-8.2)
[2022-06-10] VITALS (31 sets, daily range): BP systolic 82–125; BP diastolic 40–75
[2022-06-10 05:28] LABS: HEMATOCRIT 39.6 % (39.0-50.0); HEMOGLOBIN 12.4 g/dl (14.0-18.0); MEAN CORPUSCULAR HGB 27.9 pG CALC (26.0-32.0); MEAN CORPUSCULAR HGB CONC 31.3 g/dL CAL (32.0-36.0); RED BLOOD COUNT 4.45 mill/uL (4.70-6.10); RED CELL DISTRI WIDTH 16.5 % (11.5-15.5)
[2022-06-10 05:49] LABS: ALBUMIN 3.3 g/dL (3.2-5.0); ALKALINE PHOSPHATASE 133 u/l (38-126); ANION GAP 14 (6-22 (CALC)); BILIRUBIN, TOTAL 0.9 mg/dL (0.0-1.4); BUN 26 mg/dL (8-23); BUN/CREATININE RATIO 22 (12-20 (CALC)); CARBON DIOXIDE 18 mmol/l (22-30); CHLORIDE 110 mmol/l (95-108); CREATININE 1.2 mg/dL (0.7-1.3); GFR FOR AFR.AMER. > 60 ML/MIN (>=60 (CALC)); GFR OTHER RACES 58 ML/MIN (>=60 (CALC)); MAGNESIUM 1.6 mg/dL (1.6-2.3); POTASSIUM 4.2 mmol/l (3.5-5.1); SGOT/AST 13 u/l (19-48); SODIUM 138 mmol/l (137-146); TOTAL PROTEIN 5.8 g/dL (6.3-8.2)
== END 2022-06-10 15:00 | DRG 871 ==
LOC: ED 16:46 → ICU 20:34 → ED-I 20:34 → ICU 20:35
PROVIDERS: Family Medicine; Internal Medicine; Internal Medicine Nephrology; ADMIT Internal Medicine; ATTEND Internal Medicine
PROC: 05HM33Z Insertion of Infusion Device into Right Internal Jugular Vein, Percutaneous Approach (ICD-10-PCS; principal; 2022-06-02)
PROC: 3E043XZ Introduction of Vasopressor into Central Vein, Percutaneous Approach (ICD-10-PCS; 2022-06-02)
PROC: 0T9B70Z Drainage of Bladder with Drainage Device, Via Natural or Artificial Opening (ICD-10-PCS; 2022-06-08)
DX: A41.9 Sepsis, unspecified organism (principal); R65.21 Severe sepsis with septic shock; J18.9 Pneumonia, unspecified organism; K85.90 Acute pancreatitis without necrosis or infection, unspecified; L97.329 Non-pressure chronic ulcer of left ankle with unspecified severity; I13.0 Hypertensive heart and chronic kidney disease with heart failure and stage 1 through stage 4 chronic kidney disease, or unspecified chronic kidney disease; E87.2 Acidosis; L97.419 Non-pressure chronic ulcer of right heel and midfoot with unspecified severity; L03.116 Cellulitis of left lower limb; L03.115 Cellulitis of right lower limb; E11.649 Type 2 diabetes mellitus with hypoglycemia without coma; E11.622 Type 2 diabetes mellitus with other skin ulcer; I50.9 Heart failure, unspecified; E11.22 Type 2 diabetes mellitus with diabetic chronic kidney disease; N18.30 Chronic kidney disease, stage 3 unspecified; E11.51 Type 2 diabetes mellitus with diabetic peripheral angiopathy without gangrene; E11.621 Type 2 diabetes mellitus with foot ulcer; E87.5 Hyperkalemia; I48.91 Unspecified atrial fibrillation; E86.9 Volume depletion, unspecified; D63.1 Anemia in chronic kidney disease; E78.5 Hyperlipidemia, unspecified; I25.10 Atherosclerotic heart disease of native coronary artery without angina pectoris; K21.9 Gastro-esophageal reflux disease without esophagitis; S81.812A Laceration without foreign body, left lower leg, initial encounter; S90.422A Blister (nonthermal), left great toe, initial encounter; G89.29 Other chronic pain; T38.3X5A Adverse effect of insulin and oral hypoglycemic [antidiabetic] drugs, initial encounter; B95.61 Methicillin susceptible Staphylococcus aureus infection as the cause of diseases classified elsewhere; X58.XXXA Exposure to other specified factors, initial encounter; Z95.1 Presence of aortocoronary bypass graft; Z95.810 Presence of automatic (implantable) cardiac defibrillator; Z79.84 Long term (current) use of oral hypoglycemic drugs; Z79.4 Long term (current) use of insulin; Z79.891 Long term (current) use of opiate analgesic; Z87.891 Personal history of nicotine dependence; Z20.822 Contact with and (suspected) exposure to COVID-19
CPT/HCPCS: J0692; J1650; J3370; Q9967